=== PATIENT | female | born 1950 | race Caucasian/White ===

== ENCOUNTER 2024-10-17 08:23 | Observation (INO) ==
--- NOTE | 2024-10-15 09:26 | Anesthesiology Consultation ---
Date of Service October 15, 2024 Assessment & Plan (1) Encounter for pre-operative examination: Chart Review Chart Review: Acceptable Risk for Surgery and Patient NOT seen in Pre Admission Testing Patient with significant PONV- usually improved with pre and perioperative anti nausea medication Patient states pain medications usually causes N/V (responds well to Tylenol- per patient surgeon aware) - Check BSG AM DOS Discussed possible C diff infection early Sep 2024 with Infection Control. Patient without C diff symptoms x one month- no additional precautions needed currently but if patient develops diarrhea/change from baseline stool DOS- she should be put under C diff precautions and tested -Infectious Disease screening: Per PAT nursing assessment on 10/10/24. No known infectious disease contacts in past 10 days or current infectious disease symptoms. No recent travel outside the country. Per cardio clearance letter 10/11/24= Patient "is at a lowmoderate risk for perioperative cardiovascular complications for presumed back surgery." I would prefer she does not hold her anticoagulation but if the procedure will not be performed without holding the medication, I would recommend holding Eliquis no longer than 48 hours. She should resume as soon as possible at the discretion of the surgeon pending the course of the procedure. She has held this medication in the past without adverse effects, despite a history of stroke and DVT, she is still at a risk for stroke with holding Eliquis. Per PCP clearance letter 10/09/24 = "Low to moderate risk" for proposed surgery. "Patient is cleared for scheduled surgery." Patient can hold blood thinner x 3 days prior to procedure. Resume next day. History Surgery Operation Date: 10/17/24 12:25 Proposed Procedures p L4-L5 Decompression and Fusion, Spinal Cord Monitoring - Brad Jean Baptiste DO Height/Weight Height: 5 ft Weight: 73.936 kg Allergies Allergy/AdvReac Type Severity Reaction Status Date / Time latex Allergy Intermediate Renner Verified 10/10/24 09:12 codeine AdvReac Intermediate Vomiting Verified 10/10/24 09:12 pseudoephedrine AdvReac Intermediate Tachycardia Verified 10/10/24 09:12 [From Sudafed] tramadol AdvReac Intermediate Vomiting, Verified 10/10/24 09:12 Dizziness Nebulizer Treatments AdvReac Intermediate Tachycardia Uncoded 10/10/24 09:12 Medications Home Medications Medication Instructions Recorded Confirmed Last Taken Full Spectrum Magnesium 1 cap PO HS 10/10/24 10/10/24 Unknown Gastricsoothe 2 cap PO BID 10/10/24 10/10/24 Unknown Probiotic 1 cap PO HS 10/10/24 10/10/24 Unknown Saccharomyces boulardii 1 cap PO QAM 10/10/24 10/10/24 Unknown Vital Gut Renewal 1 tbsp PO DAILY 10/10/24 10/10/24 Unknown albuterol 90 mcg/actuation aerosol 90 mcg inhalation DAILY PRN 10/10/24 10/10/24 Unknown inhaler Shortness of breath and Wheezing apixaban 5 mg tablet (Eliquis) 5 mg PO BID 10/10/24 10/10/24 Unknown ascorbic acid (vitamin C) 1,000 mg 1 g PO DAILY 10/10/24 10/10/24 Unknown tablet (Vitamin C) calcium citrate malate-vitamin D3 2 tab PO QA 10/10/24 10/10/24 Unknown 500 mg-200 unit tablet coenzyme Q10 100 mg tablet 100 mg PO [facility] 10/10/24 10/10/24 Unknown colestipol 1 gram tablet 1 g PO BID 10/10/24 10/10/24 Unknown diphenhydramine HCl 25 mg capsule 12.5 mg PO 10/10/24 10/10/24 Unknown (Unisom SleepMinis) hydrochlorothiazide 12.5 mg capsule 12.5 mg PO [facility] 10/10/24 10/10/24 Unknown insulin glargine 100 unit/mL (3 10 unit subcut 10/10/24 10/10/24 Unknown mL) subcutaneous pen (Lantus Solostar U-100 Insulin) levothyroxine 100 mcg tablet 100 mcg PO DAILYBB 10/10/24 10/10/24 Unknown (Synthroid) melatonin 5 mg tablet 5 mg PO 10/10/24 10/10/24 Unknown metoprolol tartrate 50 mg tablet 50 mg PO BID 10/10/24 10/10/24 Unknown montelukast 10 mg tablet 10 mg PO 10/10/24 10/10/24 Unknown omeprazole 10 mg capsule,delayed 10 mg PO Q2D 10/10/24 10/10/24 Unknown release tiotropium bromide 1.25 2 puff inhalation QA 10/10/24 10/10/24 Unknown mcg/actuation mist for inhalation (Spiriva Respimat) vitamin B complex 1 cap PO QAM 10/10/24 10/10/24 Unknown vitamin D3 250 mcg (10,000 1 cap PO QAM 10/10/24 10/10/24 Unknown unit)-vitamin K2 45 mcg capsule vitamin K2 45 mcg capsule 45 mcg PO QAM 10/10/24 10/10/24 Unknown Past Medical History Medical History (Updated 10/15/24 @ 11:27 by Melyssa Branham PA-C) Asthma PRN albuterol / daily spiriva - [facility] 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 Diabetes mellitus, type 2 IDDM - Dexcom Diverticular disease 2020 - x7 episodes within a year with 3 perforations - s/p bowel resection Enlarged LA (left atrium) [facility] Heart burn History of COVID-2020 and 2021 - has lung scarring on lung images History of TIAs unknown when (2018 and 2019 per cardio records) - incidental finding on MRI of Brain - no residuals - no longer follows with Neurology Hx of Clostridium difficile infection - Multiple - most recently end of Aug 2024/early Sep 2024 - tested C diff negative (patient feels false negative due to specimen being handled improperly by lab) but had symptoms similar to previous C diff infection - treated with augmentin regimen (typically would get vancomycin) - no symtpoms since early Sep 2024 per patient 10/15/24 Hx pulmonary embolism 2020 (PE and DVT per cardio records) - [facility] - no issues since Hypothyroidism Leaky heart valve Mild MR. Mild posterior MVP per 06/2024 ECHO Osteoporosis PONV (postoperative nausea and vomiting) Significant per patient Scarring of lung "from covid, on images" as per patient [facility] Pulmonary Past Surgical History Surgical History History of ankle surgery Right History of bowel resection (05/2021) [facility] History of removal of ovarian cyst Hx of cardiac catheterization [facility] - [facility]o [facility] Cardiology Hx of cholecystectomy Hx of colonoscopy Hx of esophagogastroduodenoscopy Hx of repair of right rotator cuff Hx of thumb surgery Left Social History Smoking Status: Never smoker Do You Dip or Chew Tobacco: No Hx Alcohol Use: Yes Alcohol type: wine alcohol intake frequency: a few times a month Hx Substance Use: No substance use type: does not use Testing Laboratory Results 10/09/24= WBC: 6.1 H/H: 14.4/42.1 PLATELETS: 274 SODIUM: 140 POTASSIUM: 3.7 CHLORIDE: 203 CO2: 29 BUN: 12 CREATININE: 0.84 GLUCOSE: 110 HGB A1C: 6.1 PT: 15.4 PTT: 28.7 INR: 1.2 (on Eliquis) UA: Negative Electrocardiogram Date: 10/06/24 Findings: + SB @ (59bpm) Low voltage QRS Chest X-Ray Date: 10/09/24 Findings: + NAD Unchanged mild bilateral upper lobe scarring Echocardiogram Date: 06/06/24 EF: 55-60% RWMA: + none Other Findings: + LVH (mild/concentric ) and + diastolic dysfunction (Grade II ) LA severely dilated Mild MR. Mild posterior MVP Stress Test Date: 10/05/21 Impression: Myocardial perfusion appears normal following pharmacologic stress with regadenoson. No reversible or fixed ischemia seen. LV systolic function is normal following Lexiscan regadenoson stress. EF is normal. Cardiac Catheterization Date: 11/02/21 (Report not available- information obtained from 06/22/24 cardio note) LM = patent LAD = patent Circumflex = patent RCA = nondominant LVEF 55% Normal right heart numbers
[2024-10-17] MEDS ORDERED: DEXAMETHASONE SOD INJ 4 MG/ML VIAL ONE (08:26)
[2024-10-17] MEDS ORDERED: LIDOCAINE 2% 2 ML VIAL/AMP(20MG/ML) INFIL ONE (08:26)
[2024-10-17] MEDS ORDERED: PROPOFOL IV EMULSION 10 MG/ML 20 ML VIAL IV ONE ×2 (08:26→09:00)
[2024-10-17] MEDS ORDERED: ONDANSETRON INJ 2 MG/ML 2 ML VIAL ONE (08:26)
[2024-10-17] MEDS ORDERED: GLYCOPYRROLATE 0.2 MG/ML VIAL ONE (08:26)
[2024-10-17] MEDS ORDERED: ROCURONIUM BROMIDE 10 MG/ML 5 ML VIAL IV ONE (08:26)
[2024-10-17] MEDS ORDERED: MIDAZOLAM HCL 1 MG/ML 2ML VIAL ONE (08:27)
[2024-10-17] MEDS ORDERED: fentaNYL citrate PF 100 MCG/2 ML VIAL ONE (08:27)
[2024-10-17] MEDS ORDERED: SUGAMMADEX SODIUM 200 MG/2 ML VIAL IV ONE (08:33)
[2024-10-17] MEDS ORDERED: PHENYLEPHRINE 100MCG/ML 5ML SYR ONE (08:59)
[2024-10-17] MEDS: ACETAMINOPHEN 500 MG TAB PO SCH (09:12)
[2024-10-17] MEDS: CeleBREX 200 MG CAP PO SCH (09:12)
[2024-10-17] MEDS: GABAPENTIN 300 MG CAP PO SCH (09:13)
[2024-10-17] MEDS: LR 15ML/HR IV SCH (09:16)
[2024-10-17] MEDS: LR 60ML/HR IV SCH (09:17)
[2024-10-17] MEDS ORDERED: ATROPINE SULFATE 0.1 MG/ML 10ML SYR IV PRN (09:23)
[2024-10-17] MEDS ORDERED: ePHEDrine sulfate 50 MG/ML AMP IV PRN (09:23)
[2024-10-17] MEDS ORDERED: HYDROmorphone INJ 2 MG/ML SYR/VIAL IV PRN (09:23)
[2024-10-17] MEDS ORDERED: ONDANSETRON INJ 2 MG/ML 2 ML VIAL IV PRN (09:23)
[2024-10-17] MEDS ORDERED: PROMETHAZINE HCL 6.25 MG in SODIUM CHLORIDE 0.9% 50 ML IV PRN (09:23)
[2024-10-17] MEDS ORDERED: DROPERIDOL 5 MG/2 ML VIAL ONE (09:53)
[2024-10-17] MEDS ORDERED: diphenhydrAMINE 50 MG/ML VIAL ONE (10:00)
--- NOTE | 2024-10-17 10:10 | History & Physical Bridge Note ---
Date of Service October 17, 2024 History & Physical Bridge Note I have examined the patient, reviewed the History & Physical and in the interval since the performance of the History & Physical I have noted the following changes of clinical significance: no changes noted
--- NOTE | 2024-10-17 10:11 | History & Physical Report ---
Date of Service October 17, 2024 Assessment & Plan (1) Lumbar disc herniation with radiculopathy: Plan: L4-L5 decompression and fusion History of Present Illness Chief Complaint: Back and leg pain Primary Care Provider: Agustina Dalton This is a 73-year-old female presents for chronic persistent back and leg pain after failing course of nonoperative care is here for surgical invention. Allergies Allergy/AdvReac Type Severity Reaction Status Date / Time latex Allergy Intermediate Renner Verified 10/17/24 08:56 codeine AdvReac Intermediate Vomiting Verified 10/17/24 08:56 pseudoephedrine AdvReac Intermediate Tachycardia Verified 10/17/24 08:56 [From Sudafed] tramadol AdvReac Intermediate Vomiting, Verified 10/17/24 08:56 Dizziness Nebulizer Treatments AdvReac Intermediate Tachycardia Uncoded 10/17/24 08:56 Home Medications Medication Instructions Recorded Confirmed Type Full Spectrum Magnesium 1 cap PO HS 10/10/24 10/17/24 History Gastricsoothe 2 cap PO BID 10/10/24 10/17/24 History Probiotic 1 cap PO HS 10/10/24 10/17/24 History Saccharomyces boulardii 1 cap PO QAM 10/10/24 10/17/24 History Vital Gut Renewal 1 tbsp PO DAILY 10/10/24 10/17/24 History albuterol 90 mcg/actuation aerosol 90 mcg inhalation DAILY PRN 10/10/24 10/17/24 History inhaler Shortness of breath and Wheezing apixaban 5 mg tablet (Eliquis) 5 mg PO BID 10/10/24 10/17/24 History ascorbic acid (vitamin C) 1,000 mg 1 g PO DAILY 10/10/24 10/17/24 History tablet (Vitamin C) calcium citrate malate-vitamin D3 2 tab PO QAM 10/10/24 10/17/24 History 500 mg-200 unit tablet coenzyme Q10 100 mg tablet 100 mg PO QAM 10/10/24 10/17/24 History colestipol 1 gram tablet 1 g PO DAILY 10/10/24 10/17/24 History diphenhydramine HCl 25 mg capsule 12.5 mg PO HS 10/10/24 10/17/24 History (Unisom SleepMinis) hydrochlorothiazide 12.5 mg capsule 12.5 mg PO QAM 10/10/24 10/17/24 History insulin glargine 100 unit/mL (3 10 unit subcut HS 10/10/24 10/17/24 History mL) subcutaneous pen (Lantus Solostar U-100 Insulin) levothyroxine 100 mcg tablet 100 mcg PO DAILYBB 10/10/24 10/17/24 History (Synthroid) melatonin 5 mg tablet 5 mg PO HS 10/10/24 10/17/24 History metoprolol tartrate 50 mg tablet 50 mg PO BID 10/10/24 10/17/24 History montelukast 10 mg tablet 10 mg PO HS 10/10/24 10/17/24 History omeprazole 10 mg capsule,delayed 10 mg PO Q2D 10/10/24 10/17/24 History release tiotropium bromide 1.25 2 puff inhalation QAM 10/10/24 10/17/24 History mcg/actuation mist for inhalation (Spiriva Respimat) vitamin B complex 1 cap PO QAM 10/10/24 10/17/24 History vitamin D3 250 mcg (10,000 1 cap PO QAM 10/10/24 10/17/24 History unit)-vitamin K2 45 mcg capsule vitamin K2 45 mcg capsule 45 mcg PO QAM 10/10/24 10/17/24 History Past Med/Surg History Problem List (Updated 10/17/24 @ 10:11 by Brad Jean Baptiste DO) Lumbar disc herniation with radiculopathy Encounter for pre-operative examination Medical History (Updated 10/17/24 @ 10:11 by Brad Jean Baptiste DO) PONV (postoperative nausea and vomiting) Significant per patient Osteoporosis Scarring of lung "from covid, on images" as per patient [facility] History of COVID-19 2020 and 2021 - has lung scarring on lung images Heart burn Diabetes mellitus, type 2 IDDM - Dexcom 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 History of TIAs unknown when (2018 and 2019 per cardio records) - incidental finding on MRI of Brain - no residuals - no longer follows with Neurology Hypothyroidism Hx pulmonary embolism 2020 (PE and DVT per cardio records) - [facility] [place] - no issues since Asthma PRN albuterol / daily spiriva - [facility] Hx of Clostridium difficile infection - Multiple - most recently end of Aug 2024/early Sep 2024 - tested C diff negative (patient feels false negative due to specimen being handled improperly by lab) but had symptoms similar to previous C diff infection - treated with augmentin regimen (typically would get vancomycin) - no symtpoms since early Sep 2024 per patient 10/15/24 Diverticular disease 2020 - x7 episodes within a year with 3 perforations - s/p bowel resection Leaky heart valve Mild MR. Mild posterior MVP per 06/2024 ECHO Enlarged LA (left atrium) [facility] Atrial fibrillation Eliquis - [facility] Surgical History History of removal of ovarian cyst Hx of thumb surgery Left History of ankle surgery Right Hx of repair of right rotator cuff Hx of cholecystectomy Hx of esophagogastroduodenoscopy Hx of cardiac catheterization [facility] Hx of [facility]oscopy History of bowel resection (05/2021) [facility] Social History Smoking Status: Never smoker Second Hand Exposure: No; Do You Dip or Chew Tobacco: No; Tobacco Cessation Education Requested by Patient: No Hx Alcohol Use: Yes Alcohol type: wine Hx Substance Use: No Preferred Language: Irish Communication Ability: Effective 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
[2024-10-17] MEDS: ceFAZolin 2000MG 2,000 MG/15 ML SYR IV SCH ×2 (10:31→18:20)
[2024-10-17] MEDS: ceFAZolin 330 MG/ML 1 GM VIAL ONE (10:53)
[2024-10-17] MEDS: BUPIVACAINE/EPINEPHRINE 0.25% 1:200,000 30 ML VIAL ONE (10:53)
[2024-10-17] MEDS: FLOSEAL HEMOSTATIC MATRIX 10ML TOP ONE (11:43)
[2024-10-17] MEDS ORDERED: HYDROmorphone INJ 2 MG/ML SYR/VIAL ONE (11:48)
--- NOTE | 2024-10-17 11:51 | Operative Report ---
Post Operative Report Pre & Post Diagnosis Operation Date: 10/17/24 10:05 Pre-Op Diagnosis: #1 lumbar spondylolisthesis with radiculopathy. #2 lumbar spondylosis with radiculopathy. #3 lumbar spinal stenosis. #4 lumbar disc herniation with radiculopathy Post-Op Diagnosis: Same I identified the patient and participated in the time-out.: Yes Procedure Operation Date: 10/17/24 10:05 Actual Procedures #1 lumbar decompression bilateral medial facetectomies and foraminotomies L3-L4 L4-5. #2 posterior spinal fusion L4-5 #3 placement posterior instrumentation L4-5 per #4 interbody fusion L4-5 per #5 placement of Spira 11 x 26 mm cage x 2 at L4-5 #6 placement locally harvested morselized autograft and posterior gutters. #7 placement infuse collagen sponge, with Koros in the posterior lateral gutters and os design interbody space. #8 application of versa wrap of the exposed dura. 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 Description of Procedure Patient was met with identified informed consent obtained. Patient was then taken to the operative suite underwent intubation placed in a prone position the Damon table atop the Gera frame. All bony prominences well-padded eyes inspected to ensure no external pressure placed upon them. This point lumbar spine was prepped and draped no sterile fashion. Sharp dissection with the assistance of Bovie cautery performed down to and exposing the lamina transverse processes of L4 and L5 bilaterally. From a caudal to cephalad fashion complete laminectomy of L4 was performed including bilateral medial facetectomies and foraminotomies addressing severe spinal stenosis as well as a disc herniation on the left. And then proceeded move a partial laminectomy of L3 with bilateral medial facetectomies addressing all subarticular stenosis. Pedicle screws were then placed in L4-5 bilaterally with the assistance of fluoroscopy and the properly sized sabrina placed. By way of transforaminal approach at right discectomy of of L4-5 was performed endplates guarded to subcortical mean bone 11 x 26 mm Spira cage filled with os design tapped in position. Then proceeded to the left transforaminal region at L4-5. Again discectomy performed. Endplates guarded to subcortical bleeding bone and a second 11 x 26 mm Spira cage filled with os send bone graft apposition. The rods were then locked in a final position bilaterally. The transverse processes of L for L5 burred to subcortical bleeding bone. Infuse collagen sponge, with Koros and local graft placed in the posterior lateral gutters. Versa wrap placed over the exposed dura. 15 round ASHLEY drain inserted. The incision was then closed with 1 Vicryl the fascia 2-0 Vicryl subcutaneously for Monocryl for final skin closure. Steri-Strips sterile dressing placed. Patient waken taken to PACU in stable condition. Please note spinal cord monitoring visualized at the procedure no changes noted. Joanie Hernandez was present at the entire surgery while the patient positioning complex portion of the surgery and final skin closure. I attest to the content of the Intraoperative Record and any orders documented therein. Any exceptions are noted below.
[2024-10-17] MEDS: fentaNYL citrate PF 100 MCG/2 ML VIAL IV PRN (12:40)
--- NOTE | 2024-10-17 13:18 | Anesthesiology Progress Note ---
Date of Service October 17, 2024 Anesthesia Post Procedure Vital Signs Vital Signs: Temp Pulse Pulse Resp BP Pulse Ox O2 Del Method 10/17/24 13:10 97.7 F 62 13 132/66 96 Nasal Cannula 10/17/24 13:00 66 12 128/67 95 Nasal Cannula 10/17/24 12:50 72 13 143/66 H 96 Nasal Cannula 10/17/24 12:40 66 17 134/67 92 Oxymask 10/17/24 12:30 65 18 135/71 95 Oxymask 10/17/24 12:20 65 17 130/68 98 Oxymask 10/17/24 12:10 68 17 117/62 96 Oxymask 10/17/24 12:01 98.2 F 69 15 143/74 H 98 Oxymask 10/17/24 08:55 97.9 F 63 97 H 147/81 H 97 Room Air O2 Flow Rate 10/17/24 13:10 2 10/17/24 13:00 3 10/17/24 12:50 3 10/17/24 12:40 2 10/17/24 12:30 4 10/17/24 12:20 8 10/17/24 12:10 8 10/17/24 12:01 8 10/17/24 08:55 Pain Intensity Back: Pain Intensity: 5 Transfer of Care Handoff Completed per policy Notes Mental Status: alert / awake / arousable and participated in evaluation Patient Amnestic to Procedure: Yes Nausea / Vomiting: adequately controlled Pain: adequately controlled Airway Patency, RR, SpO2: stable & adequate BP & HR: stable & adequate Hydration State: stable & adequate Anesthetic Complications: no major complications apparent and Pt Satisfied with anesthetic care
--- NOTE | 2024-10-17 13:25 | Fluoroscopy Report ---
FL lumbar spine 2-3V CLINICAL HISTORY: L4-5 DECOMP AND FUSION COMPARISON STUDY: None. FLUOROSCOPY TIME: 18 seconds. Ka,r: 16.39 mGy FLUOROSCOPIC IMAGES: 2 FINDINGS: Fluoroscopy was provided during L4-L5 discectomies with interbody spacer placement. There i s a posterior decompression with bilateral pedicle screws at the L4 and L5 levels. IMPRESSION: Fluoroscopy provided during L4-L5 decompression and fusion. ACT 112: Negative or not required by law. Electronically signed by: Jimmie Jacobson M.D. 10/17/2024 1:24 PM
[2024-10-17] MEDS ORDERED: ACETAMINOPHEN 1,000 MG/100 ML VIAL IV PRN (13:38)
[2024-10-17] MEDS ORDERED: diphenhydrAMINE Capsule 25 MG CAP PO PRN (13:38)
[2024-10-17] MEDS ORDERED: HYDROmorphone INJ 0.5 MG/0.5 ML SYR IV PRN (13:38)
[2024-10-17] MEDS ORDERED: FAMOTIDINE 20 MG TAB PO PRN (13:38)
[2024-10-17] MEDS ORDERED: LORazepam 0.5 MG TAB PO PRN (13:38)
[2024-10-17] MEDS ORDERED: bisacodyL 10 MG SUPP PR PRN (13:38)
[2024-10-17] MEDS ORDERED: ALUMINUM/MAGNESIUM SUSP 30 ML UDC PO PRN (13:38)
[2024-10-17] MEDS ORDERED: DO NOT ADMINISTER FLU VACCINE PRN (13:38)
[2024-10-17] MEDS ORDERED: hydrOXYzine HCl 25 MG TAB PO PRN (13:38)
[2024-10-17] MEDS ORDERED: LORazepam 2 MG/1 ML VIAL IV PRN (13:38)
[2024-10-17] MEDS ORDERED: DO NOT ADMINISTER PNEUMOCOCCAL VACCINE PRN (13:38)
[2024-10-17] MEDS ORDERED: HYDROmorphone INJ 1 MG/ML SYRINGE IV PRN (13:38)
[2024-10-17] MEDS ORDERED: METOCLOPRAMIDE HCL INJ 5 MG/ML 2 ML VIAL IV PRN (13:38)
[2024-10-17] MEDS ORDERED: PROMETHAZINE 12.5 MG/50.5 ML BAG IV PRN (13:38)
[2024-10-17] MEDS ORDERED: NALOXONE HCL 0.4 MG/1 ML VIAL/CARP IV PRN (13:38)
[2024-10-17] MEDS ORDERED: MAGNESIUM HYDROXIDE SUSP 30 ML UDC PO PRN (13:38)
[2024-10-17] MEDS ORDERED: SOD PHOSPHATE/SOD BIPHOSPHATE ENEMA 132 ML BTL PR PRN (13:38)
[2024-10-17] MEDS ORDERED: PHARMACY GLYCEMIC MGMT CONSULT PRN (13:38)
[2024-10-17] MEDS ORDERED: GLUCOSE 10 TAB/TUBE PO PRN (14:00)
[2024-10-17] MEDS ORDERED: DEXTROSE 50% 50 ML SYRINGE IV PRN (14:00)
[2024-10-17] MEDS ORDERED: GLUCOSE 40% GEL 15 GM TUBE PO PRN (14:00)
[2024-10-17] MEDS ORDERED: CARBOHYDRATES FOR HYPOGLYCEMIA PO PRN (14:00)
[2024-10-17] MEDS ORDERED: GLUCAGON FOR INJ 1 MG VIAL SQ PRN (14:00)
--- NOTE | 2024-10-17 14:10 | Pharmacy Report ---
Pharmacy Glycemic Short Note 2 - Date of Service October 17, 2024 - Glycemic Short BSG Results (Last 24 hours): 10/17/24 10/17/24 08:54 12:04 POC Glucose 131 H 124 H OUTPATIENT ANTIDIABETIC REGIMEN: * Lantus 10 units SC HS ASSESSMENT: * GAVIN is a 73 year old female POD #0 s/p spinal surgery * Received 8 mg IV dexamethasone in OR and is ordered dexamethasone 6 mg IV daily x 3 days starting 10/18 * Blood sugars of 131 and 124 mg/dL pre/postoperative respectively * Will be somewhat conservative with insulin regimen today PLAN FOR INPATIENT GLYCEMIC CONTROL: * Hold outpatient oral diabetes medications * Basal insulin * Lantus 10 units SC x 1 * Reassess in AM * Bolus insulin * NovoLog per scale ACHS or Q6hrs while NPO * Goal Range: Low 110 mg/dL - High 140 mg/dL * Correction Factor: 25 mg/dL/unit * Nutritional / Prandial insulin per carb ratio of 1 unit per 7 grams CHO consumed
[2024-10-17] MEDS ORDERED: ALBUTEROL HFA 8 GM INHALER INH PRN (14:30)
[2024-10-17] MEDS: INSULIN ASPART PER UNIT CHARGE SC SCH (14:51)
[2024-10-17] MEDS: LANTUS PER UNIT CHARGE SC ONE (14:51)
--- NOTE | 2024-10-17 14:55 | Consultation ---
Date of Consultation October 17, 2024 Assessment & Plan (1) Lumbar disc herniation with radiculopathy: (2) Diabetes mellitus, type 2: (3) Hx pulmonary embolism: (4) Atrial fibrillation: (5) Diverticular disease: (6) Hx of Clostridium difficile infection: (7) Cerebral microvascular disease: Plan Lumbar disc herniation with radiculopathy: POD# 0 s/p L4-L5 decompression effusion care of Dr. Jean Baptiste. Per ortho for pain control, wound care, anticoagulation and activities. Monitor H&H, no baseline to compare. trend H/H in the AM; no overt bleeding identified around ASHLEY ASHLEY drain with juan david red blood Continue incentive spirometry, PT/OT when appropriate History of DVT/PE: Takes Eliquis; recommended to hold no more than POD#2 (48 hours) given her history. Atrial fibrillation: Takes Metoprolol; continue Takes Eliquis; recommended to hold no more than POD#2 (48 hours) given her history. H/O Diverticular Disease: History of three perforations s/p resections H/O CD H/O TIA: 2018 and 2019 without residual effect Insulin dependent diabetes type 2: Chronic Uses Lantus 10 units QHS Disposition: PCP: Dr. Dalton Code Status: Full Code VTE Prophylaxis: Teds and SCDs for now I spent a total of 60 minutes coordinating, documenting, and providing care for this patient excluding time spent inthe performance of separately billed services or time spent by another provider/QHP. Supervising Physician Co-Signing Physician Notes Patient was seen and examined at bedside for medical consult status post lumbar surgery. Patient hemodynamically stable, reports operative site pain under control. Patient on Eliquis due to history of DVT/PE and A-fib. And also has history of TIA. Resume Eliquis as soon as possible when bleeding risks deemed minimal per spine surgery. Agree with assessment plan and examination as above. Total time spent: 12 minutes. History of Present Illness Requesting Physician: Dr. Jean Baptiste Reason for Consultation: Postoperative medical management Attending Physician: Brad Jean Baptiste DO History of Present Illness Ms. Zurita is a 73 year old female presented to the [facility] for an elective decompression and fusion surgery under the care of Dr. Jean Baptiste after failed conservative management of disc herniation with radiculopathy. PMH history is complex with diverticular disease with perforation s/p resection, H/O TIA () without residual effect, AF (on Eliquis), H/O DVT/PE (2020- provoked by [place] care ride [place] hypothyroidism, IDDM2, and GERD. Post-operatively she is recovering well. She has a history of PONV and does not have any s/s this time. She denies BURTON, dizziness, chest pain, vomiting, diarrhea, recent falls. She has a ASHLEY drain and no caceres catheter. Discussed that ortho to determine restarting Eliquis; recommendation per outpatient is to not hold more than 48 hours. [facility] Hospitalists were consulted for post operative medical management. We are available 28/03 for any questions or concerns. Allergies Allergy/AdvReac Type Severity Reaction Status Date / Time latex Allergy Intermediate Renner Verified 10/17/24 08:56 codeine AdvReac Intermediate Vomiting Verified 10/17/24 08:56 pseudoephedrine AdvReac Intermediate Tachycardia Verified 10/17/24 08:56 [From Sudafed] tramadol AdvReac Intermediate Vomiting, Verified 10/17/24 08:56 Dizziness Nebulizer Treatments AdvReac Intermediate Tachycardia Uncoded 10/17/24 08:56 Home Medications Medication Instructions Recorded Confirmed Type Full Spectrum Magnesium 1 cap PO HS 10/10/24 10/17/24 History Gastricsoothe 2 cap PO BID 10/10/24 10/17/24 History Probiotic 1 cap PO HS 10/10/24 10/17/24 History Saccharomyces boulardii 1 cap PO QAM 10/10/24 10/17/24 History Vital Gut Renewal 1 tbsp PO DAILY 10/10/24 10/17/24 History albuterol 90 mcg/actuation aerosol 90 mcg inhalation DAILY PRN 10/10/24 10/17/24 History inhaler Shortness of breath and Wheezing apixaban 5 mg tablet (Eliquis) 5 mg PO BID 10/10/24 10/17/24 History ascorbic acid (vitamin C) 1,000 mg 1 g PO DAILY 10/10/24 10/17/24 History tablet (Vitamin C) calcium citrate malate-vitamin D3 2 tab PO QAM 10/10/24 10/17/24 History 500 mg-200 unit tablet coenzyme Q10 100 mg tablet 100 mg PO QAM 10/10/24 10/17/24 History colestipol 1 gram tablet 1 g PO DAILY 10/10/24 10/17/24 History diphenhydramine HCl 25 mg capsule 12.5 mg PO HS 10/10/24 10/17/24 History (Unisom SleepMinis) hydrochlorothiazide 12.5 mg capsule 12.5 mg PO QAM 10/10/24 10/17/24 History insulin glargine 100 unit/mL (3 10 unit subcut HS 10/10/24 10/17/24 History mL) subcutaneous pen (Lantus Solostar U-100 Insulin) levothyroxine 100 mcg tablet 100 mcg PO DAILYBB 10/10/24 10/17/24 History (Synthroid) melatonin 5 mg tablet 5 mg PO HS 10/10/24 10/17/24 History metoprolol tartrate 50 mg tablet 50 mg PO BID 10/10/24 10/17/24 History montelukast 10 mg tablet 10 mg PO HS 10/10/24 10/17/24 History omeprazole 10 mg capsule,delayed 10 mg PO Q2D 10/10/24 10/17/24 History release tiotropium bromide 1.25 2 puff inhalation QAM 10/10/24 10/17/24 History mcg/actuation mist for inhalation (Spiriva Respimat) vitamin B complex 1 cap PO QAM 10/10/24 10/17/24 History vitamin D3 250 mcg (10,000 1 cap PO QAM 10/10/24 10/17/24 History unit)-vitamin K2 45 mcg capsule vitamin K2 45 mcg capsule 45 mcg PO QAM 10/10/24 10/17/24 History Patient History Medical History PONV (postoperative nausea and vomiting) Significant per patient Osteoporosis Scarring of lung "from covid, on images" as per patient [facility] History of COVID-19 2020 and 2021 - has lung scarring on lung images Heart burn Diabetes mellitus, type 2 IDDM - Dexcom 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 History of TIAs unknown when (2018 and 2019 per cardio records) - incidental finding on MRI of Brain - no residuals - no longer follows with Neurology Hypothyroidism Hx pulmonary embolism 2020 (PE and DVT per cardio records[facility] since Asthma PRN albuterol / daily spiriva - [facility] Hx of Clostridium difficile infection - Multiple - most recently end of Aug 2024/early Sep 2024 - tested C diff negative (patient feels false negative due to specimen being handled improperly by lab) but had symptoms similar to previous C diff infection - treated with augmentin regimen (typically would get vancomycin) - no symtpoms since early Sep 2024 per patient 10/15/24 Diverticular disease 2020 - x7 episodes within a year with 3 perforations - s/p bowel resection Leaky heart valve Mild MR. Mild posterior MVP per 06/2024 ECHO Enlarged LA (left atrium) Niko Ulloa [facility] Surgical History History of removal of ovarian cyst Hx of thumb surgery Left History of ankle surgery Right Hx of repair of right rotator cuff Hx of cholecystectomy Hx of esophagogastroduodenoscopy Hx of cardiac catheterization [facility] Hx of colonoscopy History of bowel resection (05/2021) [facility] Social History Smoking Status: Never smoker Second Hand Exposure: No; Do You Dip or Chew Tobacco: No; Tobacco Cessation Education Requested by Patient: No Hx Alcohol Use: Yes Alcohol type: wine Hx Substance Use: No Preferred Language: Tajik Communication Ability: Effective 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 Beliefs That Will Affect Care: None Current Living Situation: Spouse Other Information That Helps Us Care for You: No Feels Safe at Home: Yes Safety Concerns: Feels Safe At This Time Assistive Devices: Denture - Upper, Glasses, Walker and Other Assistive Devices Comment: Lower partial Review of Systems Review of Systems: Neuro: (-) Falls, trauma, slurred speech HEENT: (-) BURTON, dizziness, dysphagia, visual or auditory changes CV: (-) CP, palpitations, swelling Resp: (-) SOB GI: (-) appetite changes, N/V/D, bowel changes : (-) urinary changes Skin: (-) rashes Psych: (-) anxiety, depression Physical Exam Physical Exam: Neuro: AAOx4, PERRLA, no aphagia, memory changes, CNII-XII grossly intact HEENT: head normocephalic, moist mucus membranes CV: S1/S2, (-) M/G/R, (-) edema, cap refill < 3 seconds Resp: Lungs CTA in all thao. On RA GI: Abdomen S/NT/ND, Ax4 bowel sounds, (-) CVA tenderness Musculoskeletal: 5/5 B/L UE strength, 5/5 B/L LE strength. No gait disturbance Skin: (-) rashes , (-) erythema. Psych: euthymic mood Results & Data Vital Signs (Past 12 Hours) Vital Signs Temp Pulse Pulse Resp BP Pulse Ox O2 Del Method 10/17/24 14:29 36.6 C 65 17 109/66 96 Nasal Cannula 10/17/24 14:22 Nasal Cannula 10/17/24 13:55 36.4 C L 64 17 118/73 97 Nasal Cannula 10/17/24 13:30 36.4 C L 61 17 118/56 L 97 Nasal Cannula 10/17/24 13:20 61 13 123/59 L 96 Nasal Cannula 10/17/24 13:10 36.5 C 62 13 132/66 96 Nasal Cannula 10/17/24 13:00 66 12 128/67 95 Nasal Cannula 10/17/24 12:50 72 13 143/66 H 96 Nasal Cannula 10/17/24 12:40 66 17 134/67 92 Oxymask 10/17/24 12:30 65 18 135/71 95 Oxymask 10/17/24 12:20 65 17 130/68 98 Oxymask 10/17/24 12:10 68 17 117/62 96 Oxymask 10/17/24 12:01 36.8 C 69 15 143/74 H 98 Oxymask 10/17/24 08:55 36.6 C 63 97 H 147/81 H 97 Room Air O2 Flow Rate 10/17/24 14:29 2 10/17/24 14:22 2 10/17/24 13:55 2 10/17/24 13:30 2 10/17/24 13:20 2 10/17/24 13:10 2 10/17/24 13:00 3 10/17/24 12:50 3 10/17/24 12:40 2 10/17/24 12:30 4 02/12/25 12:20 8 10/17/24 12:10 8 10/17/24 12:01 8 10/17/24 08:55 Diagnostic Findings Lumbar Spine X-Ray 10/17/24 00:00 FL lumbar spine 2-3V CLINICAL HISTORY: L4-5 DECOMP AND FUSION COMPARISON STUDY: None. FLUOROSCOPY TIME: 18 seconds. Ka,r: 16.39 mGy FLUOROSCOPIC IMAGES: 2 FINDINGS: Fluoroscopy was provided during L4-L5 discectomies with interbody spacer placement. There is a posterior decompression with bilateral pedicle screws at the L4 and L5 levels. IMPRESSION: Fluoroscopy provided during L4-L5 decompression and fusion. ACT 112: Negative or not required by law. Electronically signed by: Jimmie Jacobson M.D. 10/17/2024 1:24 PM
[2024-10-17] MEDS: ONDANSETRON INJ 2 MG/ML 2 ML VIAL IV PRN (14:57)
[2024-10-17] MEDS: HYDROCODONE/ACETAMOPHEN 5/325MG TAB PO PRN (15:08)
[2024-10-17] MEDS: ACETAMINOPHEN 500 MG TAB PO PRN (17:18)
[2024-10-17] MEDS ORDERED: PROBIOTIC PO SCH (21:00)
[2024-10-17] MEDS ORDERED: [UNRECOGNIZED DRUG - OTHER] PO SCH (21:00)
[2024-10-17] MEDS ORDERED: [UNRECOGNIZED DRUG - OTHER] PO SCH (21:00)
[2024-10-17] MEDS: MELATONIN 3 MG TAB PO SCH (21:09)
[2024-10-17] MEDS: METOPROLOL TARTRATE 50 MG TAB PO SCH (21:09)
[2024-10-17] MEDS: DOCUSATE SODIUM/SENNA 50/8.6MG TAB PO SCH (21:09)
[2024-10-17] MEDS: MONTELUKAST SODIUM 10 MG TABLET PO SCH (21:10)
[2024-10-17] MEDS: diphenhydrAMINE Capsule 25 MG CAP PO SCH (21:11)
--- OUTSIDE RECORDS SUMMARY | 2024-10-17 21:33 | External Medical Summary ---
Author Name Unknown Address Unknown Organization [id number]:[facility] - [address] [place] [id number] Laboratory Report Ordering Provider Test Date Status JUANJOSE OSBORNE 08/18/2024 02:26:52 Final Observation Date Value Abnormality Reference (Units ) Status Lactic Acid, Whole Blood 08/18/2024 02:26:52 1.3 0.4-2.0 (mmol/L) Final Performing Location [facility] - [address] [facility] [id number]
--- OUTSIDE RECORDS SUMMARY | 2024-10-17 21:33 | External Medical Summary | Summary of Care ---
Author Name Unknown Organization [facility] [address] [place] [address] Phone [phone] Care Team Providers Care Control Panel Tester Name Role Phone Agustina Dalton MD Primary Care Provid er Reason for Visit * Reason Comments Abdominal Pain * Auth/Cert Specialty Diagnoses / Procedures Referred By Contskinny t Referred To Contact [address] [address] Phone: [phone] [facility] Emergency Department ([facility]) [address] [place] [id number] Phone: tel: fax: Referral ID Status Reason Start Date Expiration Date Visits Re quested Visits Authorized [id number] Encounter Details Date Type Department Care Team (Late st Contact Info) Description 08/18/2024 2:13 AM EST - 08/18/2024 6:30 AM EST Emergency [facility] Emergency Department ([facility]) [address] [place] [id number] Ben Nix MD [address] [place] [address] [place] [id number] Generalized abdominal pain (Primary Dx); Abdominal pain Discharge Disposition: Home - Self Care Allergies Active Allergy Reactions Criticality Noted Date Comments Codeine Nausea/vomiting 06/28/2020 Diclofenac Sodium Medium 04/08/2016 Other reaction(s): blisters Doxycycline Medium 09/16/2012 Other reaction(s): emesis Latex 03/22/2019 Pseudoephedrine Hcl 12/21/2018 Other reaction(s): Irregular Heart Rate Pseudoephedrine Other (Please comment) 06/28/2020 Heart racing for over 24 hours. Tramadol 05/25/2021 Other reaction(s): Vomiting Triprolidine 08/18/2008 Other reaction(s): "jittery, palpitations" Wound Dressing Adhesive 05/12/2021 documented as of this encounter (statuses as of 08/18/2024) Medications valACYclovir HCl 1 GM Oral Tablet (VALTREX) Take 1 Tablet by mouth as needed for Other (cold sore). 9 Active Glucose Blood In Vitro Strip Use to test blood sugar once daily 9 Active FreeStyle Lancets Use to text blood sugar once daily Dx: E11.8 9 Active Cholecalciferol 50 MCG (2000 UT) Oral Capsule Take 1 Capsule by mouth in the morning. Active Krill Oil 1000 MG Oral Capsule Take 1 Capsule by mouth in the morning. Active Apixaban 5 MG Oral Tablet Take 1 Tablet by mouth in the morning and 1 Tablet before bedtime. Active Metoprolol Tartrate 25 MG Oral Tablet (Lopressor) Take 1 Tablet by mouth in the morning and 1 Tablet before bedtime. 1 Active B Complex Vitamins Oral Capsule Take 1 Capsule by mouth in the morning. Active Magnesium 300 MG Oral Capsule Take 1 Capsule by mouth at bedtime. Active Levothyroxine Sodium 50 MCG Oral Tablet (Synthroid) Take 1 Tablet by mouth daily first thing in the morning. (at least 30 min prior to breakfast or other meds) Active Probiotic (Lactobacillus) Oral Capsule Take 1 Capsule by mouth in the morning and 1 Capsule before bedtime. Active Vitamin C 500 MG Oral Capsule Take 1 Capsule by mouth in the morning. Active Albuterol Sulfate HFA 108 (90 Base) MCG/ACT Inhalation Aerosol Solution Inhale 2 Puffs by mouth every 6 hours as needed for Wheezing. 18 g 1 4 Active Colestipol HCl 1 GM Oral Tablet (Colestid) Take 1 Tablet by mouth in the morning. 3 Active Montelukast Sodium 10 MG Oral Tablet (Singulair) Take 1 Tablet by mouth every evening. 04/09/202 4 Active Insulin Glargine 100 Unit/ml SC SOLN injection Inject 10 Units under the skin at bedtime. Active Ciprofloxacin HCl 500 MG Oral Tablet (Cipro) Take 1 Tablet by mouth in the morning and 1 Tablet before bedtime. Do all this for 10 days. 20 Tablet 4 08/28/20 Active metroNIDAZOLE 500 MG Oral Tablet (Flagyl) Take 1 Tablet by mouth in the morning and 1 Tablet at noon and 1 Tablet before bedtime. Do all this for 10 days. 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 current use of anticoagulant therapy 0 10/02/2023 Optic neuritis, retrobulbar (acute), left 2022 Pseudophakia of both eyes 08/11/2023 S/P cholecystectomy 08/31/2022 Vitamin D deficiency 03/11/2022 Age-related osteoporosis wit hout current pathological fracture 08/04/2021 S/P partial colectomy 07/28/2021 Overview (10/01/2023): For diverticulitis Decreased diffusion capacity of lung 05/05/2021 Multiple subsegmental pulmon valentino emboli without acute cor pulmonale 01/07/2021 Asthma 12/25/2020 Gastroesophageal reflux disease 12/25/2020 Paroxysmal atrial fibrillation 12/23/2020 Overview (12/25/2020): CHADsVASc: 7 Last Assessment & Plan: Pt is very hesitant to start anticoagulation. She inquired about the timing of testing as she just go over two bouts of diverticulitis and an URI. We discussed there is a potential this is related to her acute illness, but even though it is likely to recur while healthy. After discussing the risk/benefit, she would like to hold off on any changes and reassess. Will wait 30 days for her to completely 'heal', then obtain a 30 day neurology professor with follow up after. At that time we will readdress treatment options, including anticoagulation. I did discuss the potential of stroke/hospitalization/heart failure with her if she remains untreated or if she goes into atrial fibrillation with RVR. She verbalized understanding. She will call with any concerns prior to her scheduled follow up. 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 Essential hypertension 03/27/2019 Hypothyroidism (acquired) 03/27/2019 Mixed hyperlipidemia 03/27/2019 Multinodular goiter (nontoxic) 03/27/2019 Osteopenia after menopause 03/27/2019 Other adult osteomalacia 03/27/2019 Type 2 diabetes mellitus wit h complication, without long-term current use of insulin 03/27/2019 Overview (10/02/2023): Suspect early, partial DKA induced by steroids documented as of this encounter (statuses as of 08/18/2024) Resolved Problems Problem Noted Date Diagnosed Date Resolved Date Adverse effect of beta-adrenoceptor agonist 10/02/2023 10/02/2023 Overview (10/02/2023): Lactic acidosis Acute lactic acidosis 10/02/20232023 Colitis, acute 06/24/2021 10/02/2023 Venous thromboembolism (VTE) 04/20/2021 10/02/2023 HSV-1 (herpes simplex virus 1) infection 04/20/2021 10/02/2023 Diverticulitis of sigmoid colon 04/19/2021 10/02/2023 Transient ischemic attack 12/25/2020 CVA (cerebral vascular accident) 01/18/2020 10/02/2023 Overview (12/25/2020): Silent occipital found incidentally on MRI. Pt on plavix as she failed asa. Headache around the eyes 12/10/2019 Encounter for examination fo r normal comparison and control in clinical research program 10/24/2017 04/07/2020 Overview (12/22/2020): DO NOT DELETE [facility] DETECT Study: Project # [id number], Coal Sample Tester: Nir Arroyo, PhD. SUMMARY: Goal: Establish test characteristics (sensitivity, specificity, PPV, NPV) of a circulating tumor DNA (ctDNA)-based test for cancer. Hypothesis: Circulating tumor DNA (ctDNA) and elevated protein biomarkers (together, the marker panel) can be detected in asymptomatic individuals with early cancer. Specific Aim 1: Determine the prevalence of a positive marker panel test in a prospective clinical cohort of 10,000 asymptomatic women ages 65 to 75 years. Specific Aim 2: Determine the sensitivity, specificity, positive predictive value (PPV) and negative predictive value (NPV) of a marker panel test to identify histologically proven cancers that develop within 5-years of the marker panel evaluation. CONTACTS: During normal business hours, contact study staff at ; after hours Coal Sample Tester via the [facility] hospital flange machine operator . Please contact study team before resolving/deleting from patients problem list. Study phone number: [phone]. Diagnosis changed due to Research Module. Go to [employer] for study details. Encounter for examination fo r normal comparison and control in clinical research program 10/24/2017 05/06/2022 Overview (12/22/2020): DO NOT DELETE - [facility] Study: Project # [id number], Coal Sample Tester: Mariusz Vallejo, MS, MPH. SUMMARY: Goal: Establish test characteristics (sensitivity, specificity, PPV, NPV) of a circulating tumor DNA (ctDNA)-based test for cancer. - Hypothesis: Circulating tumor DNA (ctDNA) and elevated protein biomarkers (together, the marker panel) can be detected in asymptomatic individuals with early cancer. - Specific Aim 1: Determine the prevalence of a positive marker panel test in a prospective clinical cohort of 10,000 asymptomatic women ages 65 to 75 years. - Specific Aim 2: Determine the sensitivity, specificity, positive predictive value (PPV) and negative predictive value (NPV) of a marker panel test to identify histologically proven cancers that develop within 5-years of the marker panel evaluation. - CONTACTS: During normal business hours, contact study staff at ; after hours Coal Sample Tester via the [facility] flange machine operator . - Please contact study team before resolving/deleting from patients problem list. Study phone number: [phone]. Diagnosis changed due to Research Module. Go to [employer] for study details. documented as of this encounter (statuses as of 08/18/2024) Social History Tobacco Use Types Packs/Day Years Used Date Smoking Tobacco: Never Smokeless Tobacco: Never Alcohol Use Standard Drinks/Week Comments Yes 0 (1 standard drink = 0.6 oz pur e alcohol) very occasionally Comments No Sex and Gender Information Value Date Recorded Sex Assigned at Not on file Legal Sex Female 11:06 AM EDT Gender Identity Not on file Sexual Orientation Not on file documented as of this encounter Last Filed Vital Signs Vital Sign Reading Time Taken Comments Blood Pressure 148/78 08/18/2024 5:00 AM EST Pulse 65 08/18/2024 5:00 AM EST Temperature 37.5 C (99.5 F) 08/18/2024 2:14 AM ES T Respiratory Rate 16 08/18/2024 4:00 AM EST Oxygen Saturation 94% 08/18/2024 5:00 AM EST Inhaled Oxygen Concentration - - Weight 75.1 kg (165 lb 9.1 oz) 08/18/2024 2:14 A M EST Height 152.4 cm (5') 08/18/2024 2:14 AM EST Body Mass Index 32.33 08/18/2024 2:14 AM EST documented in this encounter Functional Status * Are you deaf or do you have serious difficulty hearing? Answer Date of Assessment Author No 10/02/2023 2:40 AM EST Fredis Justice RN * Are you blind or do you have serious difficulty seeing, even when wearing glasses? Answer Date of Assessment Author No 10/02/2023 2:40 AM EST Fredis Justice RN * Do you have serious difficulty walking or climbing stairs? (5 years old or older) Answer Date of Assessment Author No 10/02/2023 2:40 AM EST Fredis Justice RN * Do you have difficulty dressing or bathing? (5 years old or older) Answer Date of Assessment Author No 10/02/2023 2:40 AM EST Fredis Justice RN * Because of a physical, mental, or emotional condition, do you have difficulty doing errands alone such as visiting a doctors office or shopping? (15 years old or older) Answer Date of Assessment Author No 10/02/2023 2:40 AM Fredis Salazar RN documented as of this encounter Mental Status * Because of a physical, mental, or emotional condition, do you have serious difficulty concentrating, remembering, or making decisions? (5 years old or older) Answer Entry Date Author No 10/02/2023 2:40 AM Fredis Salazar RN documented in this encounter ED Notes * Ben Nix MD - 08/18/2024 2:37 AM EST HISTORY OF PRESENT ILLNESS Jeannette Zurita is a 73 year old female who presents to the ED for evaluation of Abdominal Pain. The patient was seen at 08/18/24 0230. 73-year-old female presents with diffuse lower abdominal pain ongoing for the past approximate 24 hours. She does have a history of diverticulitis and this feels similar. She was concerned given she was waited in the past and ended up with diverticulitis with perforation requiring bowel resection no fevers or chills. No chest pain or shortness of breath. No other complaints. History provided by: patient and spouse Abdominal Pain Pain location: Generalized Pain quality: aching and bloating Pain radiates to: Does not radiate Pain severity: Mild Onset quality: Gradual Timing: Constant Chronicity: Recurrent Associated symptoms: nausea Associated symptoms: no dysuria, no fever and no vomiting Review of Systems Constitutional: Negative for fever. Gastrointestinal: Positive for abdominal pain and nausea. Negative for vomiting. Genitourinary: Negative for dysuria. All other systems reviewed and are negative. The patient's allergies, past history, and medications were reviewed. PHYSICAL EXAM Initial Vitals (see all): BP 148/121 | Pulse 69 | Resp 16 | Temp 99.5 | O2 98 %, Room Air, None | Weight 75.1 kg | Height 152.4 cm | BMI 32.33 kg/m2 Initial Pain Assessment (see all): 8 (severe pain)/10, Aching, location: left abdomen ([facility] Adult Scale 0-10) Physical Exam Constitutional: General: She is not in acute distress. Appearance: She is well-developed. She is not ill-appearing. HENT: Head: Normocephalic and atraumatic. Eyes: Extraocular Movements: Extraocular movements intact. Pupils: Pupils are equal, round, and reactive to light. Cardiovascular: Rate and Rhythm: Normal rate and regular rhythm. Heart sounds: Normal heart sounds. Pulmonary: Effort: Pulmonary effort is normal. Breath sounds: Normal breath sounds. Abdominal: General: Bowel sounds are normal. Palpations: Abdomen is soft. Tenderness: There is abdominal tenderness. Skin: General: Skin is warm. Capillary Refill: Capillary refill takes less than 2 seconds. Neurological: General: No focal deficit present. Mental Status: She is alert and oriented to person, place, and time. Psychiatric: Mood and Affect: Mood normal. Behavior: Behavior normal. PROCEDURES AND TREATMENTS ED Orders | ED Results MEDICAL DECISION MAKING Nursing notes and vital signs were reviewed. Differential Diagnoses Based on my history, physical exam, and evaluation, the differential includes, but is not limited, to the following diagnoses: appendicitis, bowel obstruction, cholelithiasis, diverticulitis and UTI. 73-year-old female presents with diffuse lower abdominal pain. Vitals stable. Labs unremarkable. CTscan unremarkable. She felt improved after treatment. Did call in antibiotics which he was started for symptoms worsened in case this is started of diverticulitis given her significant history. Discharged in stable condition with close follow-up and strict return precautions. Problems Addressed: Generalized abdominal pain: complicated acute illness or injury Amount and/or Complexity of Data Reviewed Independent Historian: spouse Labs: ordered. Details: No leukocytosis. Labs normal Radiology: ordered and independent interpretation performed. Details: No acute perforation per my independent interpretation real-time. ECG/medicine tests: ordered. Risk OTC drugs. Prescription drug management. Parenteral controlled substances. Decision regarding hospitalization. Clinical Impressions Generalized abdominal pain Disposition Discharged. The patient's condition at disposition was: stable. Discharge Medications Disp Refills Start End Ciprofloxacin HCl 500 MG Oral Tablet (Cipro) 20 Tablet 0 08/18/2024 08/28/2024 Sig - Route: Take 1 Tablet by mouth in the morning and 1 Tablet before bedtime. Do all this for 10 days. - Oral Class: ePrescribing Renewals Renewal requests to authorizing provider (Ben Nix MD) <b>prohibited</b> metroNIDAZOLE 500 MG Oral Tablet (Flagyl) 30 Tablet 0 08/18/2024 08/28/2024 Sig - Route: Take 1 Tablet by mouth in the morning and 1 Tablet at noon and 1 Tablet before bedtime. Do all this for 10 days. - Oral Class: ePrescribing Renewals Renewal requests to authorizing provider (Ben Nix MD) <b>prohibited</b> Ben Nix * Leola Conner RN - 08/18/2024 2:17 AM EST Patient reports she started yesterday with left sided abdominal pain and nausea, states she has a history of diverticulitis with perforation and is concerned that is what is going on now. documented in this encounter Miscellaneous Notes * Pt Handout (on AVS) - Ben Nix MD - 08/18/2024 6:14 AM EST [id number] Diverticulitis Some people as they get older get pouches that push into the wall of the colon. These pouches are called diverticuli. They often cause no symptoms. If the pouches become blocked, they can become inflamed and infected This is called diverticulitis. It causes pain in your lower belly (abdomen) and fever. It may also cause nausea, vomiting, diarrhea, or constipation. If not treated, it can become a serious health problem. It can cause an abscess to form around the pouch. The abscess may block the intestinal tract. The pouch may even tear or rupture. This can spread infection throughout the belly. You will need emergency medical treatment if that happens. Sometimes, diverticulitis may not need antibiotics. But antibiotics are most often used. When treatment is started early, oral antibiotics alone may be enough to cure diverticulitis. This method is tried first. But if you don't get better or if your condition gets worse while taking antibiotics, you may need to be admitted to the hospital. There, you will get antibiotics and fluids through an IV (intravenous) line. You may also have to rest your bowel. That means you won't eat or drink for a period of time. Severe cases may need surgery. Home care These guidelines will help you care for yourself at home: During the acute illness, rest and follow your healthcare provider's instructions about diet. Sometimes you will need to be on a clear liquid diet to rest your bowel. Once your symptoms are better, you may be told to eat a low- fiber diet for some time. You can eat foods such as: o Flake cereal o Mashed potatoes o Pancakes and waffles o Pasta o White bread o Rice o Applesauce o Bananas o Eggs o Fish o Poultry o Tofu o Cooked soft vegetables Take antibiotics exactly as told. Don't miss any doses or stop taking the medicine, even if you feel better. Monitor your temperature. Tell your healthcare provider if you have a rising temperature. Preventing future attacks Once you have an episode of diverticulitis, you are at risk for having it again. But you may be able to lower your risk by eating a high-fiber diet (20 g/day to 35 g/day of fiber). This cleans out the colon pouches that already exist. It may also prevent new ones from forming. Foods high in fiber include: Fresh fruits and edible peelings Raw or lightly cooked vegetables Whole-grain cereals and breads Dried beans and peas Bran Here are other steps you can take to help prevent future attacks: Take your medicines, such as antibiotics, as your healthcare provider says. Drink 6 to 8 glasses of water every day, unless told otherwise. Use a heating pad or hot water bottle to help belly cramping or pain. Start an exercise program. Ask your healthcare provider how to get started. You can benefit fromsimple activities such as walking or gardening. Treat diarrhea with a bland diet. Start with liquids only. Then slowly add fiber over time. Watch for changes in your bowel movements (constipation to diarrhea). Prevent constipation by eating a high-fiber diet and taking a stool softener if needed. Get plenty of rest and sleep. Don't take NSAIDs (anti-inflammatory drugs) unless your healthcare provider tells you to. They can increase your risk for diverticulitis. Follow-up care Check in with your healthcare provider as advised or sooner if you are not getting better in the next 2 days. Your provider may advise a colonoscopy to look at the colon once it has healed. When to call your healthcare provider Call your healthcare provider right away if any of these occur: Fever of 100.4F (38C) or higher, or as directed by your healthcare provider Repeated vomiting or swelling of the belly Weakness, dizziness, light-headedness Pain in your belly that gets worse, is severe, or spreads to your back Pain that moves to the right lower belly Rectal bleeding. This means stools that are red, black, or maroon in color. Unexpected vaginal bleeding Last Reviewed Date: 2021 00:00:00 [id number] The [employer]. All rights reserved. This information is not intended as a substitute for professional medical care. Always follow your healthcare professional's instructions. * ED Cementer Machine Note - Leola Conner RN - 08/18/2024 5:30 AM EST Contacted radiology to check on results for CT scan, they report it just got assigned to be read and the read time is 1hr 50 minutes. Patient updated. documented in this encounter Plan of Treatment Scheduled Orders Name Type Priority Associated Diagnoses Orde r Schedule EKG EKG STAT Abdominal pain One Time for 1 Occurrences starting 08/18/2024 until 08/18/2024 Health Maintenance Due Date Last Done Comments Depression Screening 1962 Diabetic Foot Exam 1968 Hepatitis C Screening 1968 DTap/Tdap Vaccines (1 - Tdap) 1969 Cologuard 11/29/1995 Fecal Occult Blood Test 11/29/1995 Sigmoidoscopy 11/29/1995 Zoster Vaccines (2 of 3) 07/18/2012 05/23/2012 Pneumococcal Vaccine: 65+ Years (2 of 2 - PCV) 09/21/2012 09/21/2011 Albumin/Creatinine Ratio 07/06/2020 07/06/2019 *SPIROMETRY ONCE FOR ASTHMA-ADULT 07/29/2022 DXA Scan 08/04/2023 08/04/2021, 01/04, 01/11/2017 *BISPHONATE OR OTHER ACCEPTABLE MEDICATION NEEDED FOR OSTEOPOROSIS (REFER TO SMARTSET #1146) 10/04/2023 COVID-19 Vaccine ( - season) 2024 Influenza Vaccine (FLU shot) (#1) 2024 08/13/2008 HbA1c 07/18/2024 01/16/2024, 09/06, 10/02/2023, Additional history exists Mammogram 08/23/2024 08/23/2023, 08/05, 08/04/2021, Additional history exists Diabetic Eye Exam 09/01/2024 09/01/2023, , 04/27/2023 TSH 04/20/2025 04/20/2024, 09/06, 10/01/2023, Additional history exists GFR 08/18/2025 08/18/2024, 04/05, 04/05/2024, Additional history exists Lipid Panel 06/01/2027 06/01/2022, 02/0 02/2020, 07/06/2019, Additional history exists Colonoscopy 04/09/2031 04/09/2021, 04/09/2021 Colorectal Cancer Screening 04/09/2031 VITAMIN D LEVEL ONCE IN A LIFETIME-USE SMARTSET# 97697 Completed 08/23/2022, 06/01/2022, 06/01/2022, Additional history exists HPV (Gardasil) Vaccine Aged Out No lo nger eligible based on patient's age to complete this topic Hepatitis B Vaccine Aged Out No longe r eligible based on patient's age to complete this topic MENINGOCOCCAL (MENACTRA/MENVEO) Aged Out No longer eligible based on patient's age to complete this topic documented as of this encounter Medical Devices Not on filedocumented as of this encounter Procedures Procedure Name Priority Date/Time Associated Diagnosis Comments URINALYSIS, REFLEX TO MICROSCOPIC STAT 08/18/2024 4:[address] ABD/PELVIS W IV CONTRAST - WO ORAL CONTRAST STAT 08/18/2024 3:27 AM EST LACTATE, WHOLE BLOOD WITH REFLEX IF ABNORMAL STAT 08/18/2024 2:26 AM EST EXTRA GREEN TOP WITH GEL Routine 08/18/2024 2:26 AM EST EXTRA LIGHT BLUE TOP STAT 08/18/2024 2:26 AM EST EXTRA TUBES Routine 08/18/2024 2:26 AM EST DIFFERENTIAL, AUTOMATED STAT 08/18/2024 2:26 AM EST COMPREHENSIVE METABOLIC PANEL STAT 08/18/2024 2:26 AM EST CBC STAT 08/18/2024 2:26 AM EST LIPASE STAT 08/18/2024 2:26 AM EST CBC STAT 08/18/2024 2:26 AM EST documented in this encounter Results * URINALYSIS, REFLEX TO MICROSCOPIC (08/18/2024 4:00 AM EST) Color, Urine Yellow Light Yellow, Yellow, Dark Yellow 08/18/2024 4:12 AM EST [facility] Clarity, Urine Clear Clear 08/18/2024 4:12 AM EST [facility] Glucose, Urine Negative Negative mg/dL 08/18/2024 4:12 AM EST [facility] Bilirubin, Urine Negative Negative 08/18/2024 4:12 AM EST [facility] Ketone, Urine Negative Negative mg/dL 08/18/2024 4:12 AM EST [facility] Specific [place], Urine 1.014 1.003 - 1.030 08/18/2024 4:12 AM EST [facility] Blood, Urine Negative Negative 08/18/2024 4:12 AM EST [facility] pH, Urine 7.0 5.0 - 7.5 Units 08/18/2024 4:12 AM EST [facility] Protein, Urine Negative Negative mg/dL 08/18/2024 4:12 AM EST [facility] Urobilinogen, Urine 0.2 0.2, 1.0 mg/dL 08/18/2024 4:12 AM EST [facility] Nitrite, Urine Negative Negative 08/18/2024 4:12 AM EST [facility] Esterase, Urine Negative Negative 4:12 AM EST [facility] Comment, Urine 08/18/2024 4:12 AM EST LABORATORY [facility] Comment:Screen negative - Mi croscopic not performed. Urine Urine specimen obtained by clean catch procedure / Unknown Non-blood Collection / Unknown 08/18/2024 4:00 AM EST 08/18/2024 4:06 AM EST us Ben Nix MD LAB URINE ORDERABLES Fin al Result LABORATORY [address] [address] * CT ABD/PELVIS W IV CONTRAST - WO ORAL CONTRAST (08/18/2024 3:27 AM EST) Anatomical Region Laterality Modality Body, Abdomen, Pelvis Computed T omography 08/18/2024 3:25 AM EST Impressions 08/18/2024 6:08 AM EST IMPRESSION: No acute abnormality THIS DOCUMENT HAS BEEN ELECTRONICALLY SIGNED BY CINTHYA TSE MD Narrative 08/18/2024 6:08 AM EST PROCEDURE INFORMATION: Exam: CT Abdomen And Pelvis With Contrast Exam date and time: 08/18/2024 3:25 AM Age: 73 years old Clinical indication: Abdominal pain; Localized; Lower; Prior surgery; Surgery date: 6+ months; Surgery type: Resection; Additional info: Abdominal pain, HX diverticulitis TECHNIQUE: Imaging protocol: Computed tomography of the abdomen and pelvis with contrast. Radiation optimization: All CT scans at this facility use at least one of these dose optimization techniques: automated exposure control; mA and/or kV adjustment per patient size (includes targeted exams where dose is matched to clinical indication); or iterative reconstruction. Contrast material: ISOVUE 370; Contrast volume: 80 ml; Contrast route: INTRAVENOUS (IV); COMPARISON: CT ABD/PELVIS W IV CONTRAST - WO ORAL CONTRAST 04/20/2024 7:52 PM FINDINGS: Lungs: The visualized lung bases are clear. Liver: Fatty infiltration is seen within the liver. The liver is enlarged. Fatty infiltration is seen within the liver Gallbladder and biliary ducts: There has been a cholecystectomy Pancreas: No suspicious abnormality is seen within the pancreas Spleen: The spleen is not enlarged Adrenal glands: The adrenal glands are normal Kidneys and ureters: There is no hydronephrosis Stomach and bowel: There has been prior rectal surgery. The stool and gas pattern is nonspecific. There are duodenal diverticula. The gastric outline is normal Appendix: The appendix is normal Intraperitoneal space: No free air. No significant fluid collection. Vasculature: Atheromatous change is seen within the aorta Lymph nodes: No lymphadenopathy is identified Urinary bladder: Bladder is unremarkable Reproductive: Unremarkable as visualized. Bones/joints: There is degenerative change within the spine there is a scoliosis in the spine. There is a central disc herniation with spinal stenosis at L4-L5 Soft tissues: Tiny fat containing umbilical hernia Procedure Note Cinthya Tse MD - 08/18/2024 PROCEDURE INFORMATION: Exam: CT Abdomen And Pelvis With Contrast Exam date and time: 08/18/2024 3:25 AM Age: 73 years old Clinical indication: Abdominal pain; Localized; Lower; Prior surgery;Surgery date: 6+ months; Surgery type: Resection; Additional info: Abdominal pain,HX diverticulitis TECHNIQUE: Imaging protocol: Computed tomography of the abdomen and pelvis withcontrast. Radiation optimization: All CT scans at this facility use at least one ofthese dose optimization techniques: automated exposure control; mA and/or kV adjustment per patient size (includes targeted exams where dose is matchedto clinical indication); or iterative reconstruction. Contrast material: ISOVUE 370; Contrast volume: 80 ml; Contrast route: INTRAVENOUS (IV); COMPARISON: CT ABD/PELVIS W IV CONTRAST - WO ORAL CONTRAST 04/20/2024 7:52 PM FINDINGS: Lungs: The visualized lung bases are clear. Liver: Fatty infiltration is seen within the liver. The liver is enlarged. Fatty infiltration is seen within the liver Gallbladder and biliary ducts: There has been a cholecystectomy Pancreas: No suspicious abnormality is seen within the pancreas Spleen: The spleen is not enlarged Adrenal glands: The adrenal glands are normal Kidneys and ureters: There is no hydronephrosis Stomach and bowel: There has been prior rectal surgery. The stool and gas pattern is nonspecific. There are duodenal diverticula. The gastricoutline is normal Appendix: The appendix is normal Intraperitoneal space: No free air. No significant fluid collection. Vasculature: Atheromatous change is seen within the aorta Lymph nodes: No lymphadenopathy is identified Urinary bladder: Bladder is unremarkable Reproductive: Unremarkable as visualized. Bones/joints: There is degenerative change within the spine there is a scoliosis in the spine. There is a central disc herniation with spinalstenosis at L4-L5 Soft tissues: Tiny fat containing umbilical hernia IMPRESSION IMPRESSION: No acute abnormality THIS DOCUMENT HAS BEEN ELECTRONICALLY SIGNED BY CINTHYA TSE MD us Ben Nix MD RAD CT Final Re sult * EXTRA GREEN TOP WITH GEL (08/18/2024 2:26 AM EST) Blood Venous blood specimen / Unknown 08/18/2024 2:26 AM EST 08/18/2024 2:32 AM EST us Ben Nix MD LAB BLOOD ORDERABLES Fin al Result [facility] [place] [address] * DIFFERENTIAL, AUTOMATED (08/18/2024 2:26 AM EST) WBC 8.07 4.00 - 10.80 K/uL 08/18/2024 2:36 AM EST LABORATORY [facility] Neutrophils % 49.5 40.0 - 75.0 % 08/18/2024 2:36 AM EST LABORATORY [facility] Lymphocytes % 37.3 18.0 - 42.0 % 08/18/2024 2:36 AM EST LABORATORY [facility] Monocytes % 10.7 1.0 - 11.0 % 08/18/2024 2:36 AM EST LAB[facility]ATORY [facility] Eosinophils % 1.9 0.0 - 6.0 % 08/18/2024 2:36 AM EST LABORATORY [facility] Basophils % 0.6 0.0 - 2.0 % 08/18/2024 2:36 AM EST LABORATORY [facility] Absolute Neutrophils 4.00 1.80 - 7.70 K/uL 08/18/2024 2:36 AM EST LABORATORY [facility] Absolute Lymphocytes 3.01 1.00 - 4.80 K/ul 08/18/2024 2:36 AM EST LABORATORY [facility] Absolute Monocytes 0.86 0.00 - 1.10 K/uL 08/18/2024 2:36 AM EST LABORATORY [facility] Absolute Eosinophils 0.15 0.00 - 0.70 K/uL 08/18/2024 2:36 AM EST LAB[facility]ATORY [facility] Absolute Basophils 0.05 0.00 - 0.20 K/uL 08/18/2024 2:36 AM EST LAB[facility]ATORY [facility] Blood Venous blood specimen / Unknown Venipuncture / Unknown 08/18/2024 2:26 AM EST 08/18/2024 2:32 AM EST Ben Nix MD LAB BLOOD ORDERABLES Fin al Result Performing Organization Address City/[facility]/ZIP Co de Phone Number LABORATORY [address] [address] * CBC (08/18/2024 2:26 AM EST) [facility] WBC 8.07 4.00 - 10.80 K/uL 08/18/2024 2:36 AM EST LABORATORY [facility] RBC 4.69 3.85 - 5.15 M/uL 08/18/2024 2:36 AM EST LABORATORY [facility] HGB 14.6 12.0 - 15.3 g/dL 08/18/2024 2:36 AM EST LABORATORY [facility] HCT 42.5 36.0 - 45.2 % 08/18/2024 2:36 AM EST LABORATORY [facility] MCV 90.6 81.5 - 97.5 fL 08/18/2024 2:36 AM EST LABORATORY [facility] MCH 31.1 27.0 - 34.0 pg 08/18/2024 2:36 AM EST LABORATORY [facility] MCHC 34.4 32.0 - 36.0 g/dL 08/18/2024 2:36 AM EST LABORATORY [facility] RDW 12.9 11.5 - 15.5 % 08/18/2024 2:36 AM EST LABORATORY [facility] PLT 231 140 - 400 K/uL 08/18/2024 2:36 AM EST LABORATORY [facility] MPV 9.3 6.6 - 11.1 fL 08/18/2024 2:36 AM EST LABORATORY [facility] Blood Venous blood specimen / Unknown Venipuncture / Unknown 08/18/2024 2:26 AM EST 08/18/2024 2:32 AM EST Ben Nix MD LAB BLOOD ORDERABLES Fin al Result Performing Organization Address City/[facility]/ZIP Co de Phone Number LABORATORY [address] [phone] * LACTATE, WHOLE BLOOD WITH REFLEX IF ABNORMAL (08/18/2024 2:26 AM EST) Pathologist [facility] Lactate 1.3 0.4 - 2.0 mmol/L 08/18/2024 2:35 AM EST LABORATORY [facility] Blood Venous blood specimen / Unknown Venipuncture / Unknown 08/18/2024 2:26 AM EST 08/18/2024 2:32 AM EST Ben Nix MD LAB BLOOD ORDERABLES Fin al Result LABORATORY [address] [phone] * EXTRA LIGHT BLUE TOP (08/18/2024 2:26 AM EST) Blood Venous blood specimen / Unknown Venipuncture / Unknown 08/18/2024 2:26 AM EST 08/18/2024 2:32 AM EST Ben Nix MD LAB BLOOD ORDERABLES Fin al Result Performing Organization Address City/[facility]/ZIP Co de Phone Number LABORATORY [address] [phone] * LIPASE (08/18/2024 2:26 AM EST) [facility] Lipase 44 13 - 60 U/L 08/18/2024 3:32 AM EST LABORATORY [facility] Blood Venous blood specimen / Unknown Venipuncture / Unknown 08/18/2024 2:26 AM EST 08/18/2024 2:32 AM EST Ben Nix MD LAB BLOOD ORDERABLES Fin al Result Performing Organization Address [facility]/ZIP Co de Phone Number LABORATORY [address] [phone] * (ABNORMAL) COMPREHENSIVE METABOLIC PANEL (08/18/2024 2:26 AM EST) [facility] Bun - Saw 18 6 - 20 mg/dL 08/18/2024 2:58 AM EST LABORATORY [facility] Creatinine - Saw 0.9 0.5 - 1.0 mg/dL 08/18/2024 2:58 AM EST LABORATORY [facility] EGFR 68 >=60 mL/min 08/18/2024 2:58 AM EST LABORATORY [facility] Comment:eGFR is calculated b ased on the CKD-EPI 2020 equation. Sodium - Saw 140 135 - 146 mmol/L 08/18/2024 2:58 AM EST LABORATORY [facility] Potassium - Saw 4.0 3.5 - 5.1 mmol/L 08/18/2024 2:58 AM EST LABORATORY [facility] Chloride - Saw 103 98 - 107 mmol/L 08/18/2024 2:58 AM EST LABORATORY [facility] CO2 - Saw 27 22 - 32 mmol/L 08/18/2024 2:58 AM EST LABORATORY [facility] Anion Gap - Saw 10 7 - 15 mmol/L 08/18/2024 2:58 AM EST LABORATORY [facility] Glucose - Saw 121(H) 70 - 120 mg/dL 08/18/2024 2:58 AM EST LABORATORY [facility] Albumin 3.8 3.5 - 4.4 g/dL 08/18/2024 2:58 AM EST LABORATORY [facility] AST 28 10 - 35 U/L 08/18/2024 2:58 AM EST LABORATORY [facility] Alkaline Phosphatase 56 35 - 130 U/L 08/18/2024 2:58 AM EST LABORATORY [facility] Bilirubin, Total 0.7 <=1.2 mg/dL 08/18/2024 2:58 AM EST LABORATORY [facility] Calcium- Saw 10.4(H) 8.4 - 10.2 mg/dL 08/18/2024 2:58 AM EST LABORATORY [facility] Protein, Total 7.5 6.0 - 8.3 g/dL 08/18/2024 2:58 AM EST LABORATORY [facility] ALT 22 10 - 35 U/L 08/18/2024 2:58 AM EST LABORATORY [facility] Blood Venous blood specimen / Unknown Venipuncture / Unknown 08/18/2024 2:26 AM EST 08/18/2024 2:32 AM EST Ben Nix MD LAB BLOOD ORDERABLES Fin al Result LABORATORY [place] [id number] [place] [phone] documented in this encounter Visit Diagnoses Diagnosis Generalized abdominal pain- Primary Abdominal pain, generalized Abdominal pain Abdominal pain, unspecified site documented in this encounter Administered Medications Inactive Administered Medications - up to 3 most recent administrations Medication Order MAR Action Action Date Dose Rate Site Iopamidol (Isovue 370) inj 80 mL 80 mL, Intravenous, ONCE, On 08/18/24 at 0400, For 1 dose, Radiology Medication Routing (Non-IR) Given 08/18/2024 3:27 AM EST 80 mL NSS 0.9% 1,000 mL bolus infusion Peripheral IV, at 1,000 mL/hr Administer over 60 Minutes, Administer entire volume within 60 minutes or less., ONCE, 1 dose, On 08/18/24 at 0315 New Bag 08/18/2024 3:03 AM EST 1,000 mL 1000 mL/hr documented in this encounter Active and Recently Administered Medications Times are shown in EST. Scheduled Medication Order 08/16/2024 08/17/2024 08/18/2024 Iopamidol (Isovue 370) inj 80 mL (COMPLETED) 80 mL, Intravenous, ONCE, On 08/18/24 at 0400, For 1 dose, Radiology Medication Routing (Non-IR) 0327 (Given - Provid er: Juan A Kramer, RT) Morphine Sulfate (PF) inj 4 mg 4 mg, Intravenous, ONCE, On 08/18/24 at 0315, For 1 dose 0315 (Not Given - Pr ovider: Leola Conner RN - Reason: Refused-Notify Provider) NSS 0.9% 1,000 mL bolus infusion (COMPLETED) Peripheral IV, at 1,000 mL/hr Administer over 60 Minutes, Administer entire volume within 60 minutes or less., ONCE, 1 dose, On 08/18/24 at 0315 0303 (New Bag - Prov ider: Leola Conner, CRISTA)0400 (Stopped - Provider: Leola Conner RN) ondansetron (Zofran) inj 4 mg 4 mg, Intravenous, ONCE, On 08/18/24 at 0315, For 1 dose 0315 (Not Given - Pr ovider: Leola Conner RN - Reason: Refused-Notify Provider) documented in this encounter Advance Directives * Full Code (Latest Code Status on File) Date Activated Date Inactivated Comments 10/02/2023 2:32 AM 10/02/2023 5:12 PM This order r eflects the patients wishes and were consensually agreed upon. Question Answer Comments Discussion of Advance Directives occurred with: Patient Does the patient have a Living Will? No Does the patient have Health Care Power of Attor bell? No * Full Code Date Activated Date Inactivated Comments 05/14/2021 9:21 PM 05/18/2021 3:09 PM This order re flects the patients wishes and were consensually agreed upon. * Full Code Date Activated Date Inactivated Comments 04/18/2021 4:43 AM 04/20/2021 4:34 PM Question Answer Comments Discussion of Advance Directives occurred with: Not Discussed Healthcare Agents on File Name Relationship Healthcare Agent Relationshi p Communication Travis Zurita Spouse First Alternate Health Care Agent Care Teams Control Panel Tester Relationship Specialty Start Date End Date Agustina Dalton MD [address] [place] [address] PCP - General Family Medicine 10/02/23 documented as of this encounter
--- OUTSIDE RECORDS SUMMARY | 2024-10-17 21:33 | External Medical Summary ---
Author Name Unknown Address Unknown Organization K1G:LABORATORY [facility] - [address] [facility] [phone] Laboratory Report Ordering Provider Test Date Status TOMMIE SILVERMAN 04/20/2024 19:44:26 Final Observation Date Value Abnormality Reference (Units ) Status Body temperature 04/20/2024 19:44:26 37.0 (C) Final pH of Venous blood 04/20/2024 19:44:26 7.378 7.320-7.430 (units) Final Carbon dioxide [Partial pressure] in Venous blood 04/20/2024 19:44:26 50.0 40.0-60.0 (mmHg) Final Oxygen [Partial pressure] in Venous blood 04/20/2024 19:44:26 20.2 Below low normal 25.0-50.0 (mmHg) Final Base excess, Capillary 04/20/2024 19:44:26 3.2 Above high normal -2.0-2.0 (mmol/L) Final Hemoglobin [Mass/volume] in Blood by Oximetry 04/20/2024 19:44:26 14.0 12.0-15.3 (g/dL) Final Oxyhemoglobin, Venous (FO2HB) 04/20/2024 19:44:26 32.4 Below low normal 40.0-85.0 (% total Hgb) Final Carboxyhemoglobin 04/20/2024 19:44:26 1.0 <=1.5 (% total Hgb) Final Smokers: 0-9.0 % Methemoglobin 04/20/2024 19:44:26 0.9 <= 1.5 (% total Hgb) Final Deoxyhemoglobin/Hemoglo bin.total in Venous blood 04/20/2024 19:44:26 65.7 (% total Hgb) Final Oxygen content in Venous blood 04/20/2024 19:44:26 6.4 Below low normal 7.0-18.0 (%vol) F inal Bicarbonate, Venous, POC (i-STAT) 04/20/2024 19:44:26 29.4 23.0-31.0 (mmol/L) Final Performing Location LABORATORY [facility] - [address] [facility] [phone]
--- OUTSIDE RECORDS SUMMARY | 2024-10-17 21:33 | External Medical Summary | Summary of Care ---
Author Name Unknown Organization [facility] Address [address] [place] [address] Phone [phone] Care Team Providers Care Galley Boy Name Role Phone Agustina Dalton MD Primary Care Provid er Reason for Visit * Reason Comments Outpatient Testing Encounter Details Date Type Department Care Team (Late st Contact Info) Description 04/25/2024 2:20 PM EDT Laboratory Laboratory, [address] [phone] [facility], Lab [address] [place] [id number] Shortness of breath Allergies Active Allergy Reactions Criticality Noted Date [...] as of this encounter (statuses as of 04/25/2024) Medications Medication Sig Dispensed Refills Start Date End Date Status valACYclovir HCl 1 GM Oral Tablet (VALTREX) Take 1 Tablet by mouth as needed for Other (cold sore). 02/02/2019 Active Glucose Blood In Vitro Strip Use to test blood sugar once daily 07/12/2019 Active FreeStyle Lancets Use to text blood sugar once daily Dx: E11.8 07/12/2019 Active Cholecalciferol 50 MCG (2000 UT) Oral [...] the morning and 1 Tablet before bedtime. 01/19/2021 Active B Complex Vitamins Oral Capsule Take [...] as needed for Wheezing. 18 g 1 10/02/2023 Active Colestipol HCl 1 GM Oral Tablet (Colestid) Take 1 Tablet by mouth in the morning. 04/26/2023 Active Montelukast Sodium 10 MG Oral Tablet (Singulair) Take 1 Tablet by mouth every evening. 12/13/2023 Active Insulin Glargine 100 Unit/ml SC SOLN injection Inject 10 Units under the skin at bedtime. Active documented as of this encounter (statuses as of 04/25/2024) Active Problems Problem Noted Date Diagnosed Date Influenza A with pneumonia 10/02/2023 senior living current use of anticoagulant therapy 0 10/02/2023 Optic neuritis, retrobulbar (acute), left 2022 Pseudophakia of both eyes 08/11/2023 S/P cholecystectomy 08/31/2022 Vitamin D deficiency 03/11/2022 Age-related osteoporosis wit hout current pathological fracture 08/04/2021 S/P partial colectomy 07/28/2021 Overview: For diverticulitis Decreased diffusion capacity of lung 05/05/2021 Multiple subsegmental pulmon valentino emboli without acute cor pulmonale 01/07/2021 Asthma 12/25/2020 Gastroesophageal reflux disease 12/25/2020 Paroxysmal atrial fibrillation 12/23/2020 Overview: CHADsVASc: 7 Last Assessment & Plan: Pt [...] completely 'heal', then obtain a 30 day media monitor with follow up after. 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 Pt on plavix as she failed asa. Headache around the eyes 12/10/2019 Encounter for examination fo r normal comparison and control in clinical research program 10/24/2017 04/07/2020 Overview: DO NOT DELETE [facility] DETECT Study: Project # [id number], Rewrite Editor: Nir Arroyo, PhD. SUMMARY: Goal: Establish test [...] contact study staff at ; after hours Rewrite Editor via the [employer] hospital waterworks operator . Please contact study team before resolving/deleting from patients problem list. Study phone number: [phone]. Diagnosis changed due to Research Module. Go to Snapshot for study details. Encounter for examination fo r normal comparison and control in clinical research program 10/24/2017 05/06/2022 Overview: DO NOT DELETE - [employer] DETECT Study: Project # [id number], Rewrite Editor: Mariusz Vallejo, MS, MPH. SUMMARY: Goal: Establish [...] contact study staff at ; after hours Rewrite Editor via the [employer] [employer] hospital waterworks operator . - Please contact study team before resolving/deleting from patients problem list. Study phone number: [phone]. Diagnosis changed due to Research Module. Go to Snapshot for study details. documented as of this encounter (statuses as of 04/25/2024) Social History Tobacco Use Types Packs/Day Years Used Date Smoking Tobacco: Never Smokeless Tobacco: Never Alcohol Use Standard Drinks/Week Comments Yes 0 (1 standard drink = 0.6 oz pur e alcohol) very occasionally Utilities Answer Date Recorded Do you have trouble paying y our heating, water, or electric bill? (Adult - for ages 18 years and over) Not on file 02/21/2024 Is your family able to pay t he heat, water, or electric bill? (Household - for ages 0-17 years) Not on file 02/21/2024 Does your family have access to good internet? (Household - for ages 0-17 years) Not on file 02/21/2024 Social Connections Answer Date Recorded How often do you feel lonely or isolated from those around you? (Adult - for ages 18 years and over) Not on file 02/21/2024 Sex and Gender Information Value Date Recorded Sex Assigned at Not on file Gender Identity Not on file Sexual Orientation Not on file Job Start Date Occupation Industry Not on file Not on file Not on file documented as of this encounter Functional Status Functional Status Response Date of Assess ment Are you deaf or do you have serious difficulty h earing? No 10/02/2023 Are you blind or do you have serious difficulty seeing, even when wearing glasses? No 10/02/2023 Do you have serious difficul ty walking or climbing stairs? (5 years old or older) No 10/02/2023 Do you have difficulty dress ing or bathing? (5 years old or older) No 10/02/2023 Because of a physical, menta l, or emotional condition, do you have difficulty doing errands alone such as visiting a doctor s office or shopping? (15 years old or older) No 10/02/19 Cognitive Status Response Date of Assessm ent Because of a physical, menta l, or emotional condition, do you have serious difficulty concentrating, remembering, or making decisions? (5 years old or older) No 10/02/2023 documented as of this encounter Plan of Treatment Health Maintenance Due Date Last Done Comments Depression Screening 1962 Diabetic Foot Exam 1968 Hepatitis C Screening 1968 DTaP,Tdap,and Td Vaccines (1 - Tdap) 1969 Cologuard 11/29/1995 Fecal Occult Blood Test 11/29/1995 Sigmoidoscopy 11/29/1995 Zoster Vaccines (2 of 3) 07/18/2012 05/23/2012 Pneumococcal Vaccine: 65+ Years (2 of 2 - PCV) 09/21/2012 09/21/2011 Albumin/Creatinine Ratio 07/06/2020 07/06/2019 *SPIROMETRY ONCE FOR ASTHMA-ADULT 07/29/2022 COVID-19 Vaccine ( - 2022- season) 2023 DXA Scan 08/04/2023 08/04/2021, 01/04, 01/11/2017 *BISPHONATE OR OTHER ACCEPTABLE MEDICATION NEEDED FOR OSTEOPOROSIS (REFER TO SMARTSET #1146) 10/04/2023 Influenza Vaccine (FLU shot) (#1) 2024 08/13/2008 HbA1c 07/18/2024 01/16/2024, 09/06, 10/02/2023, Additional history exists Mammogram 08/23/2024 08/23/2023, 08/05, 08/04/2021, Additional history exists Diabetic Eye Exam 09/01/2024 09/01/2023, , 04/27/2023 GFR 04/20/2025 04/20/2024, 0809/2023, 01/16/2024, Additional history exists TSH 04/20/2025 04/20/2024, 09/06, 10/01/2023, Additional history exists Lipid Panel 06/01/2027 06/01/2022, 020 02/2020, 07/06/2019, Additional history exists Colonoscopy 04/09/2031 04/09/2021, 04/09/2021 Colorectal Cancer Screening 04/09/2031 VITAMIN D LEVEL ONCE IN A LIFETIME-USE SMARTSET# 55761 Completed 08/23/2022, 06/01/2022, 06/01/2022, Additional history exists [...] Not on filedocumented as of this encounter Visit Diagnoses Diagnosis Shortness of breath documented in this encounter Advance Directives * [...] First Alternate Health Care Agent Care Teams Galley Boy Relationship Specialty Start Date End Date Agustina Dalton MD [address] [place] [address] PCP - General Family Medicine 10/02/23 documented as of this encounter
--- OUTSIDE RECORDS SUMMARY | 2024-10-17 21:33 | External Medical Summary ---
Author Name Unknown Address Unknown Organization K1G:LABORATORY [facility] - [address] [place] [id number] Laboratory Report Ordering Provider Test Date Status JUANJOSE OSBORNE 08/18/2024 02:26:52 Final Observation Date Value Abnormality Reference (Units ) Status SYNC LEUKOCYTES IN BLOOD BY AUTOMATED COUNT 08/18/2024 02:26:52 8.07 4.00-10.80 (K/uL) Final Segs 08/18/2024 02:26:52 49.5 40.0-75.0 (%) Final Lymphs % 08/18/2024 02:26:52 37.3 18.0-42.0 (%) Final Monos 08/18/2024 02:26:52 10.7 1.0-11.0 (%) Final Eosinophils 08/18/2024 02:26:52 1.9 0.0-6.0 (%) Final Basos 08/18/2024 02:26:52 0.6 0.0-2.0 (%) Final Absolute Segs 08/18/2024 02:26:52 4.00 1.80-7.70 (K/uL) Final Lymphs, absolute 08/18/2024 02:26:52 3.01 1.00-4.80 (K/ul) Final Monos, Abs 08/18/2024 02:26:52 0.86 0.00-1.10 (K/uL) Final Eos, Abs 08/18/2024 02:26:52 0.15 0.00-0.70 (K/uL) Final Basos, Abs 08/18/2024 02:26:52 0.05 0.00-0.20 (K/uL) Final Performing Location LABORATORY [facility] - [address] [facility] [address]
--- OUTSIDE RECORDS SUMMARY | 2024-10-17 21:33 | External Medical Summary ---
Author Name Unknown Address Unknown Organization K1G:[facility] - [address] [place] [phone] Laboratory Report Ordering Provider Test Date Status HERRERATOMMIE 04/20/2024 19:44:26 Final Observation Date Value Abnormality Reference (Units ) Status TSH 04/20/2024 19:44:26 0.81 0.27-4.20 (uIU/mL) Final Performing Location [facility] - [address] [place] [phone]
--- OUTSIDE RECORDS SUMMARY | 2024-10-17 21:33 | External Medical Summary ---
Author Name Unknown Address Unknown Organization K1G:[facility] - [address] [place] [phone] Laboratory Report Ordering Provider Test Date Status JUANJOSE OSBORNE 08/18/2024 02:26:52 Final Observation Date Value Abnormality Reference (Units ) Status Lipase 08/18/2024 02:26:52 44 13-60 (U/L ) Final Performing Location [facility]ATORY [facility] - [address] [place] [phone]
--- OUTSIDE RECORDS SUMMARY | 2024-10-17 21:33 | External Medical Summary ---
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 20:09:21 Final Observation Date Value Abnormality Reference (Units ) Status Color of Urine by Auto 04/20/2024 20:09:21 Yellow Light Yellow, Yellow, Dark Yellow Final Clarity, Urine 04/20/2024 20:09:21 Clear Clear Final Glucose [Mass/volume] in Urine by Automated test strip 04/20/2024 20:09:21 Negative Negative (mg/dL) Final Bilirubin.total [Presence] in Urine by Automated test strip 04/20/2024 20:09:21 Negative Negative Final Ketones [Mass/volume] in Urine by Automated test strip 04/20/2024 20:09:21 Negative Negative (mg/dL) Final Specific gravity, Urine 04/20/2024 20:09:21 1.010 1.003-1.030 Final Hemoglobin [Presence] in Urine by Automated test strip 04/20/2024 20:09:21 Negative Negative Final pH, Urine 04/20/2024 20:09:21 6.0 5.0-7.5 (Units) Final Protein [Mass/volume] in Urine by Automated test strip 04/20/2024 20:09:21 Negative Negative (mg/dL) Final Urobilinogen [Mass/volume] in Urine by Automated test strip 04/20/2024 20:09:21 0.2 0.2, 1.0 (mg/dL) Final Nitrite [Presence] in Urine by Automated test strip 04/20/2024 20:09:21 Negative Negative Final Leukocyte esterase [Presence] in Urine by Automated test strip 04/20/2024 20:09:21 Negative Negative Final RBC, Urine 04/20/2024 20:09:21 0-2 0-2 (/HPF) Final WBC, Urine 04/20/2024 20:09:21 0-2 0-2 (/HPF) Final Bacteria [#/area] in Urine sediment by Microscopy high power field 04/20/2024 20:09:21 0-25 0-25 (/HPF) Final CULTURE, URINE - [facility] 04/20/2024 20:09:21 Final Culture not indicated by uri nalysis results\[id number]\ Performing Location LABORATORY [facility] - [address] [place] [phone]
--- OUTSIDE RECORDS SUMMARY | 2024-10-17 21:33 | External Medical Summary | Summary of Care ---
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 Name Role Phone Agustina Dalton MD Primary Care Provid er Reason for Visit * Reason Comments Headache * Auth/Cert Specialty Diagnoses / Procedures Referred By Contac t Referred To Contact [facility] [address] [place] [address] Phone: [phone] [place] [address] Referral ID Status Reason Start Date Expiration Date Visits Re quested Visits Authorized [id number] Encounter Details Date Type Department Care Team (Late st Contact Info) Description 04/20/2024 7:02 PM EDT - 04/20/2024 9:10 PM EDT Emergency [facility] Emergency Department ([facility]) [facility] [place] [address] Kerry Wasserman MD [address] [place] [address] Tension-type headache, not intractable, unspecified chronicity pattern (Primary Dx); Screening for cardiovascular condition; Type 2 diabetes mellitus with hyperglycemia, unspecified whether jail insulin use (HCC) Discharge Disposition: Home - Self Care Allergies [...] as of this encounter (statuses as of 04/21/2024) Medications Medication Sig Dispensed Refills Start Date [...] as of this encounter (statuses as of 04/21/2024) Active Problems Problem Noted Date Diagnosed Date Influenza A with pneumonia 10/02/2023 detention current use of anticoagulant therapy 0 10/02/2023 [...] completely 'heal', then obtain a 30 day site monitor with follow up after. At that [...] as of this encounter (statuses as of 04/21/2024) Resolved Problems Problem Noted Date Diagnosed Date [...] program 10/24/2017 04/07/2020 Overview: DO NOT DELETE [facility] DETECT Study: Project # [id number], Measurement Operator: Nir Arroyo, PhD. SUMMARY: Goal: Establish test [...] contact study staff at ; after hours Measurement Operator via the [facility] hospital broadcast transmitter operator . Please contact study team before resolving/deleting from patients problem list. Study phone number: [phone]. Diagnosis changed due to Research Module. Go to Snapshot for study details. Encounter for examination fo r normal comparison and control in clinical research program 10/24/2017 05/06/2022 Overview: DO NOT DELETE - [facility] Study: Project # [id number], Measurement Operator: Mariusz Vallejo, MS, MPH. SUMMARY: Goal: Establish [...] contact study staff at ; after hours Measurement Operator via the [facility] hospital broadcast transmitter operator . - Please contact study team before resolving/deleting from patients problem list. Study phone number: [phone]. Diagnosis changed due to Research Module. Go to Snapshot for study details. documented as of this encounter (statuses as of 04/21/2024) Social History Tobacco Use Types Packs/Day Years [...] Sign Reading Time Taken Comments Blood Pressure 154/78 04/20/2024 9:00 PM EDT Pulse 74 04/20/2024 9:00 PM EDT Temperature 36 C (96.8 F) 04/20/2024 6:56 PM EDT Respiratory Rate 20 04/20/2024 9:00 PM EDT Oxygen Saturation 98% 04/20/2024 9:00 PM EDT Inhaled Oxygen Concentration - - Weight - - Height 152.4 cm (5') 04/20/2024 7:07 PM EDT Body Mass Index - - documented in this encounter Functional Status Functional Status Response [...] No 10/02/2023 documented as of this encounter Discharge Instructions * Discharge Instructions* Kerry Wasserman MD - 04/20/2024 9:01 PM EDT You were seen in the emergency department for headache and high blood sugar. Your workup was reassuring. Your blood glucose after receiving fluids was 204. CT scan of your abdomen did not show acute concerning findings. We did see chronic lung changes; however, it does appear that you have history of asthma. We do recommend following up with your primary care physician. You did not require any medication changes at this time. Feel free to return to ED with any new or worsening symptoms. documented in this encounter ED Notes * Kerry Wasserman MD - 04/20/2024 9:10 PM EDT HISTORY OF PRESENT ILLNESS Jeannette Zurita is a 73 year old female who presents to the ED for evaluation of Headache. The patientwas seen at 04/20/241903. 73-year-old female past medical history of asthma, hypertension, type 2 diabetes, diverticulitis status post partial colectomy presenting with chief complaint of headache. Patient reports feeling "not right" over the past week. She notes she was diagnosed with type 2 diabetes many years ago which was previously diet and exercise controlled. She recently was started on insulin this week due to blood glucose being over 400 repeatedly. Patient states her blood sugar is now in the 200s. She is due to take her Lantus at 9:00 p.m. tonight. She also reports having a chest cold approximately 10 days prior to this visit. She reports a cough, heaviness in her chest. She also reports feeling tight when she is trying to breathe. She also notes a generalized abdominal cramping that has been occurring for several weeks. She denies any associated fevers, chills, nausea, vomiting, dysuria. She does report associated headache for which she took Tylenol prior to arrival and states it is beginning to subside. Review of Systems Constitutional: Positive for fatigue. Negative for chills and fever. HENT: Negative for congestion. Eyes: Negative for visual disturbance. Respiratory: Positive for cough and shortness of breath. Cardiovascular: Positive for chest pain. Negative for leg swelling. Gastrointestinal: Positive for abdominal pain. Negative for diarrhea and vomiting. Endocrine: Negative for polyuria. Genitourinary: Negative for dysuria and flank pain. Musculoskeletal: Negative for back pain. Skin: Negative for rash. Neurological: Positive for headaches. Negative for seizures. Hematological: Negative for adenopathy. Psychiatric/Behavioral: Negative for agitation and confusion. The patient's allergies, past history, and medications were reviewed. PHYSICAL EXAM Initial Vitals (see all): BP 141/71 | Pulse 68 | Resp 22 | Temp 96.8 | O2 99 %, Room Air, None | Weight 73.48 kg | Height 152.4 cm | BMI 31.64 kg/m2 Initial Pain Assessment (see all): 4 (moderate pain)/10, Throbbing, location: head ([facility] Adult Scale 0-10) Physical Exam Vitals and nursing note reviewed. Constitutional: General: She is not in acute distress. Appearance: She is well-developed. HENT: Head: Normocephalic and atraumatic. Right Ear: External ear normal. Left Ear: External ear normal. Nose: Nose normal. Eyes: Conjunctiva/sclera: Conjunctivae normal. Pupils: Pupils are equal, round, and reactive to light. Cardiovascular: Rate and Rhythm: Normal rate and regular rhythm. Pulmonary: Effort: Pulmonary effort is normal. No respiratory distress. Breath sounds: Normal breath sounds. Abdominal: Palpations: Abdomen is soft. Tenderness: There is no abdominal tenderness. There is no right CVA tenderness or left CVA tenderness. Musculoskeletal: General: No swelling. Cervical back: Neck supple. Right lower leg: No edema. Left lower leg: No edema. Skin: General: Skin is warm and dry. Capillary Refill: Capillary refill takes less than 2 seconds. Neurological: Mental Status: She is alert and oriented to person, place, and time. Psychiatric: Mood and Affect: Mood normal. PROCEDURES AND TREATMENTS ED Orders | ED Results MEDICAL DECISION MAKING Nursing notes and vital signs were reviewed. ED Course as of 04/20/242238Apr 20, 20241946 73-year-old female past medical history of asthma, hypertension, type 2 diabetes, diverticulitis status post partial colectomy presenting with chief complaint of headache. Patient reports feeling "not right" over the past week. She notes she was diagnosed with type 2 diabetes many years ago which was previously diet and exercise controlled. She recently was started on insulin this week due to blood glucose being over 400 repeatedly. Patient states her blood sugar is now in the 200s. She isdue to take her Lantus at 9:00 p.m. tonight. She also reports having a chest cold approximately 10 days prior to this visit. She reports a cough, heaviness in her chest. She also reports feeling tight when she is trying to breathe. She also notes a generalized abdominal cramping that has been occurring for several weeks. She denies any associated fevers, chills, nausea, vomiting, dysuria. She does report associated headache for which she took Tylenol prior to arrival and states it is beginning to subside. [CS] ED Course User Index [CS] Kerry Wasserman MD Differential Diagnoses Based on my history, physical exam, and evaluation, the differential includes, but is not limited, to the following diagnoses: Dysrhythmia, pneumonia, bronchitis, electrolyte abnormality, hyperglycemia, DKA, HHS. Amount and/or Complexity of Data Reviewed Labs: ordered. Radiology: ordered. ECG/medicine tests: ordered. Risk Prescription drug management. Patient seen and examined at bedside. Vital signs stable. Physical exam and history as noted above.Differential diagnosis noted above. Of note, patient is in no apparent distress , saturating on room air, no increased work of breathing, normotensive, afebrile. Patient's laboratory workup was largely reassuring. Patient received 1 L normal saline solution. Blood glucose on BMP 204. EKG per my interpretation revealed normal sinus rhythm, ventricular rate of 75 beats per minute, no signs of acute ischemia, no STEMI criteria met. Chest x-ray per my interpretation did reveal chronic changes. CT abdomen pelvis negative for acute concerning findings. These findings were discussed with patient and . Based on these findings and constellation of symptoms it was deemed appropriate for patient to follow up outpatient. Return precautions discussed and verbally acknowledged. Written discharge instructions provided. Clinical Impressions Tension-type headache, not intractable, unspecified chronicity pattern Type 2 diabetes mellitus with hyperglycemia, unspecified whether jail insulin use (HCC) Disposition Discharged. The patient's condition at disposition was: stable. Kerry Wasserman * Leola Conner RN - 04/20/2024 7:05 PM EDT Patient reports that she has a headache that started this afternoon. She states her blood sugar hasbeen high and she just started using insuline this week and her sugar continues to be high however not as high as it was prior. Prior sugars were 400, sugar now 256. Pt is due to take her lantus at 2100 tonight. She also reports she had a chest cold 10 days ago that is improved but still not gone. R eports a cough and heaviness in chest. documented in this encounter Miscellaneous Notes * ED Fly Frame Tender Note - Sejal Cardoso RN - 04/20/2024 9:10 PM EDT Pt given discharge instructions at this time, and she verbalized understanding of all instructions at time of discharge. Pt is to f/u with her PCP. Pt and pt's significant other both ambulated out [place] with all belongings. * ED Fly Frame Tender Note - Sejal Cardoso RN - 04/20/2024 8:05 PM EDT Pt states that her headache is slowly getting better and does not want any pain medication at this time. Dr. Wasserman aware of this. documented in this encounter Plan of Treatment Scheduled Orders Name Type Priority Associated Diagnoses Orde r Schedule EKG EKG STAT Screening for cardiovascular condition Perform Now for 1 Occurrences starting 04/20/2024 until 04/20/2024 Health Maintenance Due Date Last Done Comments Depression Screening 1962 Diabetic Foot Exam 1968 Hepatitis C Screening 1968 DTaP,Tdap,and Td Vaccines (1 - Tdap) 1969 Cologuard 11/29/1995 Fecal Occult Blood Test 11/29/1995 Sigmoidoscopy 11/29/1995 Zoster Vaccines (2 of 3) 07/18/2012 05/23/2012 Pneumococcal Vaccine: 65+ Years (2 of 2 - PCV) 09/21/2012 09/21/2011 Albumin/Creatinine Ratio 07/06/2020 07/06/2019 *SPIROMETRY ONCE FOR ASTHMA-ADULT 07/29/2022 COVID-19 Vaccine (1 - season) 2023 DXA Scan 08/04/2023 08/04/2021, 01/04, [...] D LEVEL ONCE IN A LIFETIME-USE SMARTSET# [id number] Completed 08/23/2022, 06/01/2022, 06/01/2022, Additional history exists [...] Date/Time Associated Diagnosis Comments URINALYSIS, REFLEX TO CULTURE STAT 04/20/2024 8:09 PM EDT URINALYSIS, REFLEX TO CULTURE (CUP ONLY) STAT 04/20/2024 8:09 PM EDT URINALYSIS, REFLEX TO CULTURE (NOT FOR NEUTROPENIC PATIENTS) STAT 04/20/2024 8:09 PM EDT XR CHEST 1 VIEW STAT 04/20/2024 8:[address] ABD/PELVIS W IV CONTRAST - WO ORAL CONTRAST STAT 04/20/2024 7:56 PM EDT LACTATE, WHOLE BLOOD WITH REFLEX IF ABNORMAL STAT 04/20/2024 7:44 PM EDT DIFFERENTIAL, AUTOMATED STAT 04/20/2024 7:44 PM EDT TROPONIN T, HIGH SENSITIVITY STAT 04/20/2024 7:44 PM EDT BLOOD GAS, VENOUS STAT 04/20/2024 7:4 4 PM EDT HEPATIC FUNCTION PANEL STAT 04/20/2024 7:44 PM EDT BASIC METABOLIC PANEL STAT 04/20/2024 7:44 PM EDT CBC STAT 04/20/2024 7:44 PM EDT LIPASE STAT 04/20/2024 7:44 PM EDT CBC STAT 04/20/2024 7:44 PM EDT TSH Add-on 04/20/2024 7:44 PM EDT RESPIRATORY PATHOGEN PANEL, PCR STAT 04/20/2024 7:37 PM EDT documented in this encounter Results * URINALYSIS, REFLEX TO CULTURE (04/20/2024 8:09 PM EDT) Color, Urine Yellow Light Yellow, Yellow, Dark Yellow 04/20/2024 8:27 PM EDT LABORATORY [facility] Clarity, Urine Clear Clear 04/20/2024 8:27 PM EDT LABORATORY [facility] Glucose, Urine Negative Negative mg/dL 04/20/2024 8:27 PM EDT LABORATORY [facility] Bilirubin, Urine Negative Negative 04/20/2024 8:27 PM EDT LABORATORY [facility] Ketone, Urine Negative Negative mg/dL 04/20/2024 8:27 PM EDT LABORATORY [facility] Specific [place], Urine 1.010 1.003 - 1.030 04/20/2024 8:27 PM EDT LABORATORY [facility] Blood, Urine Negative Negative 04/20/2024 8:27 PM EDT LABORATORY [facility] pH, Urine 6.0 5.0 - 7.5 Units 04/20/2024 8:27 PM EDT LABORATORY [facility] Protein, Urine Negative Negative mg/dL 04/20/2024 8:27 PM EDT LABORATORY [facility] Urobilinogen, Urine 0.2 0.2, 1.0 mg/dL 04/20/2024 8:27 PM EDT LABORATORY [facility] Nitrite, Urine Negative Negative 04/20/2024 8:27 PM EDT LABORATORY [facility] Esterase, Urine Negative Negative 04/20/2024 8:27 PM EDT LABORATORY [facility] RBC, Urine 0-2 0 - 2 /HPF 04/20/2024 8:27 PM EDT LABORATORY [facility] WBC, Urine 0-2 0 - 2 /HPF 04/20/2024 8:27 PM EDT LABORATORY [facility] Bacteria, Urine 0-25 0 - 25 /HPF 04/20/2024 8:27 PM EDT LABORATORY [facility] Culture, Urine 04/20/2024 8:27 PM EDT LABORATORY [facility] Comment:Culture not indicate d by urinalysis results Urine Urine specimen obtained by clean catch procedure / Unknown Non-blood Collection / Unknown 04/20/2024 8:09 PM EDT 04/20/2024 8:15 PM EDT Kerry Wasserman MD LAB URINE ORDERABLES LABORATORY [place] [id number] [place] [address] * URINALYSIS, REFLEX TO CULTURE (CUP ONLY) (04/20/2024 8:09 PM EDT) Urinalysis, Reflex to Culture Specimen Specimen collected and received 04/20/2024 8:20 PM EDT LABORATORY [facility] Urine Urine specimen obtained by clean catch procedure / Unknown Non-blood Collection / Unknown 04/20/2024 8:09 PM EDT 04/20/2024 8:16 PM EDT Kerry Wasserman MD LAB URINE ORDERABLES LABORATORY [place] [id number] [place] [address] * XR CHEST 1 VIEW (04/20/2024 8:01 PM EDT) Anatomical Region Laterality Modality Chest Computed Radiogr aphy 04/20/2024 8:02 PM EDT Impressions 04/20/2024 8:28 PM EDT IMPRESSION: 1. New prominence of the interstitial pattern most likely representing new edema superimposed on chronic change. THIS DOCUMENT HAS BEEN ELECTRONICALLY SIGNED BY ILYA EUGENE MD Narrative 04/20/2024 8:28 PM EDT PROCEDURE INFORMATION: Exam: XR Chest Exam date and time: 04/20/2024 8:02 PM Age: 73 years old Clinical indication: Shortness of breath; Additional info: SOB TECHNIQUE: Imaging protocol: Radiologic exam of the chest. Views: 1 view. COMPARISON: DX XR CHEST 2 VIEWS 04/09/2024 11:29 AM FINDINGS: Lungs: There is new mild prominence of the interstitial pattern throughout. This most likely represents new interstitial edema superimposed on chronic change. There is no consolidation. Pleural spaces: No effusions or pneumothoraces. Heart/Mediastinum: The heart is not enlarged. The aorta is atherosclerotic. There is no aneurysm. Bones/joints: No acute bony change of the ribs identified. Procedure Note Ilya Eugene MD - 04/20/2024 PROCEDURE INFORMATION: Exam: XR Chest Exam date and time: 04/20/2024 8:02 PM Age: 73 years old Clinical indication: Shortness of breath; Additional info: SOB TECHNIQUE: Imaging protocol: Radiologic exam of the chest. Views: 1 view. COMPARISON: DX XR CHEST 2 VIEWS 04/09/2024 11:29 AM FINDINGS: Lungs: There is new mild prominence of the interstitial patternthroughout. This most likely represents new interstitial edema superimposed on chronic change. There is no consolidation. Pleural spaces: No effusions or pneumothoraces. Heart/Mediastinum: The heart is not enlarged. The aorta isatherosclerotic. There is no aneurysm. Bones/joints: No acute bony change of the ribs identified. IMPRESSION IMPRESSION: 1. New prominence of the interstitial pattern most likely representingnew edema superimposed on chronic change. THIS DOCUMENT HAS BEEN ELECTRONICALLY SIGNED BY ILYA EUGENE MD Kerry Wasserman MD RADIOLOGY (RAD GENER AL) * CT ABD/PELVIS W IV CONTRAST - WO ORAL CONTRAST (04/20/2024 7:56 PM EDT) Anatomical Region Laterality Modality Body, Abdomen, Pelvis Computed T omography 04/20/2024 7:52 PM EDT Impressions 04/20/2024 8:35 PM EDT IMPRESSION: 1. Diffuse hepatic steatosis without focal lesion. 2. Prior rectosigmoid surgery without obstruction. There are diverticula of the sigmoid colon but no diverticulitis. No free air or free fluid. 3. No renal calculi or renal obstruction. 4. Small hiatal hernia. THIS DOCUMENT HAS BEEN ELECTRONICALLY SIGNED BY ILYA EUGENE MD Narrative 04/20/2024 8:35 PM EDT PROCEDURE INFORMATION: Exam: CT Abdomen And Pelvis With Contrast Exam date and time: 04/20/2024 7:52 PM Age: 73 years old Clinical indication: Other: Cramping; Additional info: Cramping generalized abdominal pain TECHNIQUE: Imaging protocol: Computed tomography of the [...] INTRAVENOUS (IV); COMPARISON: CT ABD/PELVIS W IV CON 04/16/2021 7:04 AM FINDINGS: Lungs: Lung bases are clear of acute infiltrate. Heart: The heart is not enlarged. No coronary artery calcification. Liver: The liver shows diffuse steatosis. Gallbladder and biliary ducts: There has been a prior cholecystectomy. No abnormal biliary dilatation. Pancreas: The pancreas shows no focal lesion. It is mildly atrophic. Spleen: The spleen is not enlarged. No focal lesion. Adrenal glands: The adrenal glands are unremarkable. Kidneys and ureters: The kidneys are unobstructed. No calculi are identified. Stomach and bowel: There is a small hiatal hernia. There has been prior rectosigmoid surgery. There is no mass or obstruction at the anastomotic site. There are diverticula of the sigmoid colon but no diverticulitis. Appendix: The appendix is normal Intraperitoneal space: No free air or free fluid. Vasculature: There is mild calcification of the abdominal aorta without aneurysm. No significant stenosis of the celiac axis or superior mesenteric artery. Lymph nodes: No abnormal para-aortic adenopathy Urinary bladder: The bladder shows no filling defects. Reproductive: The uterine contour is unremarkable. Bones/joints: There are diffuse degenerative changes of the lumbar spine but no acute fracture or dislocation. Soft tissues: No abnormal abdominal wall soft tissue masses identified. There is a tiny subumbilical hernia containing fat only. Procedure Note Ilya Eugene MD - 04/20/2024 PROCEDURE INFORMATION: Exam: CT Abdomen And Pelvis With Contrast Exam date and time: 04/20/2024 7:52 PM Age: 73 years old Clinical indication: Other: Cramping; Additional info: Crampinggeneralized abdominal pain TECHNIQUE: Imaging protocol: Computed tomography of the [...] INTRAVENOUS (IV); COMPARISON: CT ABD/PELVIS W IV CON 04/16/2021 7:04 AM FINDINGS: Lungs: Lung bases are clear of acute infiltrate. Heart: The heart is not enlarged. No coronary artery calcification. Liver: The liver shows diffuse steatosis. Gallbladder and biliary ducts: There has been a prior cholecystectomy.No abnormal biliary dilatation. Pancreas: The pancreas shows no focal lesion. It is mildly atrophic. Spleen: The spleen is not enlarged. No focal lesion. Adrenal glands: The adrenal glands are unremarkable. Kidneys and ureters: The kidneys are unobstructed. No calculi areidentified. Stomach and bowel: There is a small hiatal hernia. There has been prior rectosigmoid surgery. There is no mass or obstruction at the anastomoticsite. There are diverticula of the sigmoid colon but no diverticulitis. Appendix: The appendix is normal Intraperitoneal space: No free air or free fluid. Vasculature: There is mild calcification of the abdominal aorta without aneurysm. No significant stenosis of the celiac axis or superiormesenteric artery. Lymph nodes: No abnormal para-aortic adenopathy Urinary bladder: The bladder shows no filling defects. Reproductive: The uterine contour is unremarkable. Bones/joints: There are diffuse degenerative changes of the lumbar spinebut no acute fracture or dislocation. Soft tissues: No abnormal abdominal wall soft tissue masses identified.There is a tiny subumbilical hernia containing fat only. IMPRESSION IMPRESSION: 1. Diffuse hepatic steatosis without focal lesion. 2. Prior rectosigmoid surgery without obstruction. There are diverticulaof the sigmoid colon but no diverticulitis. No free air or free fluid. 3. No renal calculi or renal obstruction. 4. Small hiatal hernia. THIS DOCUMENT HAS BEEN ELECTRONICALLY SIGNED BY ILYA EUGENE MD Kerry Wasserman MD RAD CT * TSH (04/20/2024 7:44 PM EDT) Pathologist [facility] TSH 0.81 0.27 - 4.20 uIU/mL 04/20/2024 8:22 PM EDT LABORATORY [facility] Blood Venous blood specimen / Unknown Venipuncture / Unknown 04/20/2024 7:44 PM EDT 04/20/2024 7:48 PM EDT Kerry Wasserman MD LAB BLOOD ORDERABLES LABORATORY [place] [id number] [place] [address] * (ABNORMAL) DIFFERENTIAL, AUTOMATED (04/20/2024 7:44 PM EDT) WBC 4.80 4.00 - 10.80 K/uL 04/20/2024 7:53 PM EDT LABORATORY [facility] Neutrophils % 47.7 40.0 - 75.0 % 04/20/2024 7:53 PM EDT LABORATORY [facility] Lymphocytes % 37.1 18.0 - 42.0 % 04/20/2024 7:53 PM EDT LABORATORY [facility] Monocytes % 11.3(H) 1.0 - 11.0 % 04/20/2024 7:53 PM EDT LABORATORY [facility] Eosinophils % 2.9 0.0 - 6.0 % 04/20/2024 7:53 PM EDT LABORATORY [facility] Basophils % 1.0 0.0 - 2.0 % 04/20/2024 7:53 PM EDT LABORATORY [facility] Absolute Neutrophils 2.29 1.80 - 7.70 K/uL 04/20/2024 7:53 PM EDT LABORATORY [facility] Absolute Lymphocytes 1.78 1.00 - 4.80 K/ul 04/20/2024 7:53 PM EDT LABORATORY [facility] Absolute Monocytes 0.54 0.00 - 1.10 K/uL 04/20/2024 7:53 PM EDT LABORATORY [facility] Absolute Eosinophils 0.14 0.00 - 0.70 K/uL 04/20/2024 7:53 PM EDT LABORATORY [facility] Absolute Basophils 0.05 0.00 - 0.20 K/uL 04/20/2024 7:53 PM EDT LABORATORY [facility] Blood Venous blood specimen / Unknown Venipuncture / Unknown 04/20/2024 7:44 PM EDT 04/20/2024 7:48 PM EDT Kerry Wasserman MD LAB BLOOD ORDERABLES Performing Organization Address City/State/[facility] Co de Phone Number LABORATORY [address] [address] * CBC (04/20/2024 7:44 PM EDT) [facility] WBC 4.80 4.00 - 10.80 K/uL 04/20/2024 7:53 PM EDT LABORATORY [facility] RBC 4.25 3.85 - 5.15 M/uL 04/20/2024 7:53 PM EDT LAB[facility]ATORY [facility] HGB 13.1 12.0 - 15.3 g/dL 04/20/2024 7:53 PM EDT LAB[facility] HCT 39.5 36.0 - 45.2 % 04/20/2024 7:53 PM EDT LAB[facility] MCV 92.9 81.5 - 97.5 fL 04/20/2024 7:53 PM EDT LAB[facility] MCH 30.8 27.0 - 34.0 pg 04/20/2024 7:53 PM EDT [facility] MCHC 33.2 32.0 - 36.0 g/dL 04/20/2024 7:53 PM EDT [facility] RDW 12.7 11.5 - 15.5 % 04/20/2024 7:53 PM EDT [facility] PLT 182 140 - 400 K/uL 04/20/2024 7:53 PM EDT [facility] MPV 9.7 6.6 - 11.1 fL 04/20/2024 7:53 PM EDT [facility] Blood Venous blood specimen / Unknown Venipuncture / Unknown 04/20/2024 7:44 PM EDT 04/20/2024 7:48 PM EDT Kerry Wasserman MD LAB BLOOD ORDERABLES [facility] [place] [id number] [place] [address] * (ABNORMAL) BLOOD GAS, VENOUS (04/20/2024 7:44 PM EDT) Temperature 37.0 C 04/20/2024 7:50 PM EDT LAB[facility] pH, Venous 7.378 7.320 - 7.430 units 04/20/2024 7:50 PM EDT [facility] pCO2, Venous 50.0 40.0 - 60.0 mmHg 04/20/2024 7:50 PM EDT [facility] pO2, Venous 20.2(L) 25.0 - 50.0 mmHg 04/20/2024 7:50 PM EDT [facility] Base Excess, Venous 3.2(H) -2.0 - 2.0 mmol/L 04/20/2024 7:50 PM EDT [facility] HGB 14.0 12.0 - 15.3 g/dL 04/20/2024 7:50 PM EDT [facility] Oxyhemoglobin, Venous 32.4(L) 40.0 - 85.0 % total Hgb 04/20/2024 7:50 PM EDT [facility] Carboxyhemoglobi n, Whole Blood 1.0 <=1.5 % total Hgb 04/20/2024 7:50 PM EDT [facility] Comment:Smokers: 0-9.0 % Methemoglobin, Whole Blood 0.9 <=1.5 % total Hgb 04/20/2024 7:50 PM EDT [facility] Reduced Hemoglobin, Venous 65.7 % total Hgb 04/20/2024 7:50 PM EDT [facility] O2 Content, Venous 6.4(L) 7.0 - 18.0 %vol 04/20/2024 7:50 PM EDT [facility] Bicarbonate, Whole Blood 29.4 23.0 - 31.0 mmol/L 04/20/2024 7:50 PM EDT [facility] Blood Venous blood specimen / Unknown Venipuncture / Unknown 04/20/2024 7:44 PM EDT 04/20/2024 7:48 PM EDT Kerry Wasserman MD LAB BLOOD ORDERABLES Performing Organization Address City/State/[facility] Co de Phone Number LABORATORY [address] [address] * (ABNORMAL) HEPATIC FUNCTION PANEL (04/20/2024 7:44 PM EDT) Pathologist [facility] [place] Albumin 3.8 3.8 - 5.0 g/dL 04/20/2024 8:13 PM EDT [facility] AST 26 10 - 35 U/L 04/20/2024 8:13 PM EDT [facility] Alkaline Phosphatase 58 35 - 130 U/L 04/20/2024 8:13 PM EDT [facility] ALT 36(H) 10 - 35 U/L 04/20/2024 8:13 PM EDT [facility] Bilirubin, Total 0.3 <=1.2 mg/dL 04/20/2024 8:13 PM EDT [facility] Bilirubin, Direct <0.2 0.0 - 0.3 mg/dL 04/20/2024 8:13 PM EDT [facility] Protein 6.1 6.0 - 8.3 g/dL 04/20/2024 8:13 PM EDT [facility] Blood Venous blood specimen / Unknown Venipuncture / Unknown 04/20/2024 7:44 PM EDT 04/20/2024 7:48 PM EDT Kerry Wasserman MD LAB BLOOD ORDERABLES Performing Organization Address City/[facility]/ZIP Co de Phone Number LABORATORY [address] [address] * LIPASE (04/20/2024 7:44 PM EDT) [facility] Lipase 38 13 - 60 U/L 04/20/2024 8:13 PM EDT LAB[facility] Blood Venous blood specimen / Unknown Venipuncture / Unknown 04/20/2024 7:44 PM EDT 04/20/2024 7:48 PM EDT Kerry Wasserman MD LAB BLOOD ORDERABLES Performing Organization Address [facility] de Phone Number LABORATORY [address] [address] * LACTATE, WHOLE BLOOD WITH REFLEX IF ABNORMAL (04/20/2024 7:44 PM EDT) [facility] Lactate, Whole Blood 1.5 0.4 - 2.0 mmol/L 04/20/2024 7:50 PM EDT LAB[facility] Blood Venous blood specimen / Unknown Venipuncture / Unknown 04/20/2024 7:44 PM EDT 04/20/2024 7:48 PM EDT Kerry Wasserman MD LAB BLOOD ORDERABLES Performing Organization Address [facility] Co de Phone Number LABORATORY [address] [address] * TROPONIN T, HIGH SENSITIVITY (04/20/2024 7:44 PM EDT) [facility] Troponin T, High Sensitivity 8 <=14 ng/L 04/20/2024 8:22 PM EDT LAB[facility] Blood Venous blood specimen / Unknown Venipuncture / Unknown 04/20/2024 7:44 PM EDT 04/20/2024 7:48 PM EDT Kerry Wasserman MD LAB BLOOD ORDERABLES LABORATORY [address] [address] * (ABNORMAL) BASIC METABOLIC PANEL (04/20/2024 7:44 PM EDT) [facility] BUN 12 6 - 20 mg/dL 04/20/2024 8:13 PM EDT [facility] Creatinine 0.8 0.5 - 1.0 mg/dL 04/20/2024 8:13 PM EDT [facility] Estimated Glomerular Filtration Rate 81 >=60 mL/min 04/20/2024 8:13 PM EDT [facility] Comment:eGFR is calculated b ased on the CKD-EPI 2020 equation. Sodium 136 135 - 146 mmol/L 04/20/2024 8:13 PM EDT [facility] Potassium 3.6 3.5 - 5.1 mmol/L 04/20/2024 8:13 PM EDT [facility] Chloride 101 98 - 107 mmol/L 04/20/2024 8:13 PM EDT [facility] CO2 25 22 - 32 mmol/L 04/20/2024 8:13 PM EDT [facility] Anion Gap 10 7 - 15 mmol/L 04/20/2024 8:13 PM EDT [facility] Glucose 204(H) 70 - 120 mg/dL 04/20/2024 8:13 PM EDT [facility] Calcium 8.9 8.4 - 10.2 mg/dL 04/20/2024 8:13 PM EDT [facility] Blood Venous blood specimen / Unknown Venipuncture / Unknown 04/20/2024 7:44 PM EDT 04/20/2024 7:48 PM EDT Kerry Wasserman MD LAB BLOOD ORDERABLES LAB[facility]ATORY [facility] [address] [place] [address] * RESPIRATORY PATHOGEN PANEL, PCR (04/20/2024 7:37 PM EDT) Adenovirus by PCR Negative Negative 024 8:39 PM EDT [facility] Coronavirus 229E by PCR Negative Negative 04/20/2024 8:39 PM EDT [facility] Coronavirus HKU1 by PCR Negative Negative 04/20/2024 8:39 PM EDT [facility] Coronavirus NL63 by PCR Negative Negative 04/20/2024 8:39 PM EDT [facility] Coronavirus OC43 by PCR Negative Negative 04/20/2024 8:39 PM EDT [facility] Coronavirus SARS-CoV-2 by PCR Negative Negative 04/20/2024 8:39 PM EDT [facility] Human Metapneumovirus by PCR Negative Negative 04/20/2024 8:39 PM EDT [facility] Rhinovirus/Enterovi donya by PCR Negative Negative 04/20/2024 8:39 PM EDT [facility] Influenza A Virus by PCR Negative Negative 04/20/2024 8:39 PM EDT [facility] Influenza B Virus by PCR Negative Negative 04/20/2024 8:39 PM EDT [facility] Parainfluenza Virus 1 by PCR Negative Negative 04/20/2024 8:39 PM EDT [facility] Parainfluenza Virus 2 by PCR Negative Negative 04/20/2024 8:39 PM EDT [facility] Parainfluenza Virus 3 by PCR Negative Negative 04/20/2024 8:39 PM EDT [facility] Parainfluenza Virus 4 by PCR Negative Negative 04/20/2024 8:39 PM EDT [facility] Respiratory Syncytial Virus by PCR Negative Negative 04/20/2024 8:39 PM EDT [facility] Bordetella pertussis by PCR Negative Negative 04/20/2024 8:39 PM EDT [facility] Chlamydia pneumoniae by PCR Negative Negative 04/20/2024 8:39 PM EDT [facility] Mycoplasma pneumoniae by PCR Negative Negative 04/20/2024 8:39 PM EDT [facility] Bordetella parapertussis by PCR Negative Negative 04/20/2024 8:39 PM EDT [facility] Comment: The primers that detect Rhinovirus may cross react with some Enterorviruses. The validation of bronchial specimens, tracheal aspirates, and throats for this assay was developed and performance characteristics determined by [employer]. The validation of alternate specimen types has not been cleared or approved by the U.S. Food and Drug Administration (FDA). It has been determined that such clearance or approval is not necessary. Upper Respiratory Mid-turbinate nasal swab / Unknown Non-blood Collection / Unknown 04/20/2024 7:37 PM EDT 04/20/2024 7:48 PM EDT Kerry Wasserman MD LAB MICRO - GENERAL ORDERABLES LAB[facility]ATORY [place] [id number] [place] [address] documented in this encounter Visit Diagnoses Diagnosis Tension-type headache, not intractable, unspecified chronicity pattern- Primary Screening for cardiovascular condition Screening for other and unspecified cardiovascular conditions Type 2 diabetes mellitus with hyperglycemia, unspecified whether jail insulin use (HCC) documented in this encounter Administered Medications Inactive Administered Medications - up to 3 most recent administrations Medication Order MAR Action Action Date Dose Rate Site Iopamidol (Isovue 370) inj 80 mL 80 mL, Intravenous, ONCE, On Tue04/20/24 at 2030, For 1 dose, Radiology Medication Routing (Non-IR) Given 04/20/2024 7:57 PM EDT 80 mL NSS 0.9% 1,000 mL bolus infusion Intravenous, at 1,000 mL/hr Administer over 60 Minutes, Administer entire volume within 60 minutes or less., ONCE, 1 dose, On Tue04/20/24 at 2015 Restarted 04/20/2024 8:09 PM EDT 1000 mL/hr New Bag 04/20/2024 7:50 PM EDT 1,000 mL 1000 mL/hr documented in this encounter Active and Recently Administered Medications Times are shown in EDT. Scheduled Medication Order 04/18/2024 04/19/2024 04/20/2024 Iopamidol (Isovue 370) inj 80 mL (COMPLETED) 80 mL, Intravenous, ONCE, On Tue04/20/24 at 2029, For 1 dose, Radiology Medication Routing (Non-IR) 1956 (Given - Provid er: Rosa Stapleton, RT) keTORolac (Toradol) 30 MG/ML inj 30 mg 30 mg, IV Push, ONCE, On Tue04/20/24 at 2014, For 1 dose 2005 (Not Given - Pr ovider: Sejal Cardoso RN - Reason: Refused-Notify Provider - Comment: Dr. Wasserman aware that pt refused medication at this time.) NSS 0.9% 1,000 mL bolus infusion (COMPLETED) Intravenous, at 1,000 mL/hr Administer over 60 Minutes, Administer entire volume within 60 minutes or less., ONCE, 1 dose, On Tue04/20/24 at 2014 1949 (New Bag - Prov ider: Sejal Cardoso RN)1950 (Paused - Provider: Sejal Cardoso RN)2008 (Restarted - Provider: Sejal Cardoso RN)2105 (Stopped - Provider: Sejal Cardoso RN)2107 (Stopped - Provider: Sejal Cardoso RN) documented in this encounter Additional Health Concerns Infection Onset Date Last Indicated Resolved Time Respiratory Rule-Out 04/20/2024 04/20/2024 024 8:39 PM EDT COVID-19 Rule-Out 04/20/2024 04/20/2024 04/20/2024 8:39 PM EDT documented as of this encounter Advance Directives * Full Code [...] Relationship Healthcare Agent Relationshi p Communication Travis Yudith Spouse First Alternate Health Care Agent Care 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
--- OUTSIDE RECORDS SUMMARY | 2024-10-17 21:33 | External Medical Summary ---
Author Name Unknown Address Unknown Organization K1G:LABORATORY [facility] - [address] [place] [phone] Laboratory Report Ordering Provider Test Date Status JUANJOSE OSBORNE 08/18/2024 04:00:54 Final Observation Date Value Abnormality Reference (Units ) Status Color of Urine by Auto 08/18/2024 04:00:54 Yellow Light Yellow, Yellow, Dark Yellow Final Clarity, Urine 08/18/2024 04:00:54 Clear Clear Final Glucose [Mass/volume] in Urine by Automated test strip 08/18/2024 04:00:54 Negative Negative (mg/dL) Final Bilirubin.total [Presence] in Urine by Automated test strip 08/18/2024 04:00:54 Negative Negative Final Ketones [Mass/volume] in Urine by Automated test strip 08/18/2024 04:00:54 Negative Negative (mg/dL) Final Specific gravity, Urine 08/18/2024 04:00:54 1.014 1.003-1.030 Final Hemoglobin [Presence] in Urine by Automated test strip 08/18/2024 04:00:54 Negative Negative Final pH, Urine 08/18/2024 04:00:54 7.0 5.0-7.5 (Units) Final Protein [Mass/volume] in Urine by Automated test strip 08/18/2024 04:00:54 Negative Negative (mg/dL) Final Urobilinogen [Mass/volume] in Urine by Automated test strip 08/18/2024 04:00:54 0.2 0.2, 1.0 (mg/dL) Final Nitrite [Presence] in Urine by Automated test strip 08/18/2024 04:00:54 Negative Negative Final Leukocyte esterase [Presence] in Urine by Automated test strip 08/18/2024 04:00:54 Negative Negative Final Annotation Comment 08/18/2024 04:00:54 Final Screen negative - Microscopi c not performed. Performing Location [facility]ATORY [facility] - [address] [facility] [phone]
--- OUTSIDE RECORDS SUMMARY | 2024-10-17 21:33 | External Medical Summary ---
Author Name Unknown Address Unknown Organization K1G:LABORATORY [facility] - [facility] [address] Laboratory Report Ordering Provider Test Date Status TOMMIE SILVERMAN 04/20/2024 19:37:55 Final ADMITTED patient Observation Date Value Abnormality Reference (Units ) Status Adenovirus DNA [Presence] in Nasopharynx by JASE with non-probe detection 04/20/2024 19:37:55 Negative Negative Final Human coronavirus 229E RNA [Presence] in Nasopharynx by JASE with non-probe detection 04/20/2024 19:37:55 Negative Negative Final Human coronavirus HKU1 RNA [Presence] in Nasopharynx by JASE with non-probe detection 04/20/2024 19:37:55 Negative Negative Final Human coronavirus NL63 RNA [Presence] in Nasopharynx by JASE with non-probe detection 04/20/2024 19:37:55 Negative Negative Final Human coronavirus OC43 RNA [Presence] in Nasopharynx by JASE with non-probe detection 04/20/2024 19:37:55 Negative Negative Final SARS-CoV-2 (COVID-19) RNA [Presence] in Nasopharynx by JASE with non-probe detection 04/20/2024 19:37:55 Negative Negative Final Human metapneumovirus RNA [Presence] in Nasopharynx by JASE with non-probe detection 04/20/2024 19:37:55 Negative Negative Final Rhinovirus+Enterovirus RNA [Presence] in Nasopharynx by JASE with non-probe detection 04/20/2024 19:37:55 Negative Negative Final Influenza virus A RNA [Presence] in Nasopharynx by JASE with non-probe detection 04/20/2024 19:37:55 Negative Negative Final Influenza virus B RNA [Presence] in Nasopharynx by JASE with non-probe detection 04/20/2024 19:37:55 Negative Negative Final Parainfluenza virus 1 RNA [Presence] in Nasopharynx by JASE with non-probe detection 04/20/2024 19:37:55 Negative Negative Final Parainfluenza virus 2 RNA [Presence] in Nasopharynx by JASE with non-probe detection 04/20/2024 19:37:55 Negative Negative Final Parainfluenza virus 3 RNA [Presence] in Nasopharynx by JASE with non-probe detection 04/20/2024 19:37:55 Negative Negative Final Parainfluenza virus 4 RNA [Presence] in Nasopharynx by JASE with non-probe detection 04/20/2024 19:37:55 Negative Negative Final Respiratory syncytial virus RNA [Presence] in Nasopharynx by JASE with non-probe detection 04/20/2024 19:37:55 Negative Negative Final Bordetella pertussis.pertussis toxin promoter region [Presence] in Nasopharynx by JASE with non-probe detection 04/20/2024 19:37:55 Negative Negative Final Chlamydophila pneumoniae DNA [Presence] in Nasopharynx by JASE with non-probe detection 04/20/2024 19:37:55 Negative Negative Final Mycoplasma pneumoniae DNA [Presence] in Nasopharynx by JASE with non-probe detection 04/20/2024 19:37:55 Negative Negative Final Bordetella parapertussis [id number] DNA [Presence] in Nasopharynx by JASE with non-probe detection 04/20/2024 19:37:55 Negative Negative Final
The primers that detect Rhinovirus may cross react with some Enterorviruses. The validation of bronchial specimens, tracheal aspirates, and throats for this assay was developed and performance characteristics determined by [employer]. The validation of alternate specimen types has not been cleared or approved by the U.S. Food and Drug Administration (FDA). It has been determined that such clearance or approval is not necessary. Performing Location [facility] - [address] [place] [phone]
--- OUTSIDE RECORDS SUMMARY | 2024-10-17 21:33 | External Medical Summary ---
Author Name Unknown Address Unknown Organization K1G:LABORATORY [facility] - [address] [facility] [address] Laboratory Report Ordering Provider Test Date Status TOMMIE SILVERMAN 04/20/2024 19:44:26 Final Observation Date Value Abnormality Reference (Units ) Status SYNC LEUKOCYTES IN BLOOD BY AUTOMATED COUNT 04/20/2024 19:44:26 4.80 4.00-10.80 (K/uL) Final Segs 04/20/2024 19:44:26 47.7 40.0-75.0 (%) Final Lymphs % 04/20/2024 19:44:26 37.1 18.0-42.0 (%) Final Monos 04/20/2024 19:44:26 11.3 Above high normal 1.0-11.0 (%) Final Eosinophils 04/20/2024 19:44:26 2.9 0.0-6.0 (%) Final Basos 04/20/2024 19:44:26 1.0 0.0-2.0 (%) Final Absolute Segs 04/20/2024 19:44:26 2.29 1.80-7.70 (K/uL) Final Lymphs, absolute 04/20/2024 19:44:26 1.78 1.00-4.80 (K/ul) Final Monos, Abs 04/20/2024 19:44:26 0.54 0.00-1.10 (K/uL) Final Eos, Abs 04/20/2024 19:44:26 0.14 0.00-0.70 (K/uL) Final Basos, Abs 04/20/2024 19:44:26 0.05 0.00-0.20 (K/uL) Final Performing Location LABORATORY [facility] - [address] [facility] [phone]
--- OUTSIDE RECORDS SUMMARY | 2024-10-17 21:33 | External Medical Summary ---
Author Name Unknown Address Unknown Organization K1G:LABORATORY [facility] - [address] [place] [phone] Laboratory Report Ordering Provider Test Date Status RAVI SILVERMANBASILIO 04/20/2024 19:44:26 Final Observation Date Value Abnormality Reference (Units ) Status Lactic Acid, Whole Blood 04/20/2024 19:44:26 1.5 0.4-2.0 (mmol/L) Final Performing Location LABORATORY [facility] - [address] [place] [phone]
--- OUTSIDE RECORDS SUMMARY | 2024-10-17 21:33 | External Medical Summary ---
Author Name Unknown Address Unknown Organization K1G:LABORATORY [facility] - [address] [place] [phone] Laboratory Report Ordering Provider Test Date Status MARITZASCARLET 04/25/2024 14:26:50 Final Exclude Heart Failure: <300 pg/mL
Diagnose Heart Failure:
Age <50 yr: >450 pg/mL
50-75 yr: >900 pg/mL
>75 yr: >1800 pg/mL
GFR is 30-59 mL/min: >1200 pg/mL or Age- adjusted values
GFR <30 mL/min: do not use, not reliable

Prognostic threshold: 1000 pg/mL Observation Date Value Abnormality Reference (Units ) Status BNP, Pro-hormone 04/25/2024 14:26:50 111 <30 0 (pg/mL) Final Performing Location LABORATORY [facility] - [address] [place] [phone]
--- OUTSIDE RECORDS SUMMARY | 2024-10-17 21:33 | External Medical Summary ---
Author Name Unknown Address Unknown Organization K1G:LABORATORY [facility] - [address] [place] [phone] Laboratory Report Ordering Provider Test Date Status TOMMIE SILVERMAN 04/20/2024 19:44:26 Final Observation Date Value Abnormality Reference (Units ) Status WBC, Total 04/20/2024 19:44:26 4.80 4.00-10.8 0 (K/uL) Final RBC 04/20/2024 19:44:26 4.25 3.85-5.15 (M/uL) Final Hemoglobin 04/20/2024 19:44:26 13.1 12.0-15.3 (g/dL) Final HCT 04/20/2024 19:44:26 39.5 36.0-45.2 (%) Final MCV 04/20/2024 19:44:26 92.9 81.5-97.5 (fL) Final MCH 04/20/2024 19:44:26 30.8 27.0-34.0 (pg) Final MCHC 04/20/2024 19:44:26 33.2 32.0-36.0 (g/dL) Final RDW 04/20/2024 19:44:26 12.7 11.5-15.5 (%) Final Platelets 04/20/2024 19:44:26 182 140-400 (K /uL) Final MPV 04/20/2024 19:44:26 9.7 6.6-11.1 ( fL) Final Performing Location LABORATORY [facility] - [address] [place] [phone]
--- OUTSIDE RECORDS SUMMARY | 2024-10-17 21:33 | External Medical Summary ---
Author Name Unknown Address Unknown Organization K1G:LABORATORY [facility] - [facility] [address] [facility] [phone] Laboratory Report Ordering Provider Test Date Status JUANJOSE OSBORNE 08/18/2024 02:26:52 Final Observation Date Value Abnormality Reference (Units ) Status WBC, Total 08/18/2024 02:26:52 8.07 4.00-10.8 0 (K/uL) Final RBC 08/18/2024 02:26:52 4.69 3.85-5.15 (M/uL) Final Hemoglobin 08/18/2024 02:26:52 14.6 12.0-15.3 (g/dL) Final HCT 08/18/2024 02:26:52 42.5 36.0-45.2 (%) Final MCV 08/18/2024 02:26:52 90.6 81.5-97.5 (fL) Final MCH 08/18/2024 02:26:52 31.1 27.0-34.0 (pg) Final MCHC 08/18/2024 02:26:52 34.4 32.0-36.0 (g/dL) Final RDW 08/18/2024 02:26:52 12.9 11.5-15.5 (%) Final Platelets 08/18/2024 02:26:52 231 140-400 (K /uL) Final MPV 08/18/2024 02:26:52 9.3 6.6-11.1 ( fL) Final Performing Location LABORATORY [facility] - [address] [facility] [phone]
--- OUTSIDE RECORDS SUMMARY | 2024-10-17 21:33 | External Medical Summary ---
Author Name Unknown Address Unknown Organization K1G:LABORATORY [facility] - [address] [facility] [phone] Laboratory Report Ordering Provider Test Date Status JUANJOSE OSBORNE 08/18/2024 02:26:52 Final Observation Date Value Abnormality Reference (Units ) Status BUN 08/18/2024 02:26:52 18 6-20 (mg/dL) Final Creatinine 08/18/2024 02:26:52 0.9 0.5-1.0 (mg/dL) Final Glomerular filtration rate/1.73 sq M.predicted [Volume Rate/Area] in Serum, Plasma or Blood by Creatinine-based formula (CKD-EPI) 08/18/2024 02:26:52 68 >=60 (mL/min) Final eGFR is calculated based on the CKD-EPI 2020 equation. Sodium 08/18/2024 02:26:52 140 135-146 (m mol/L) Final Potassium 08/18/2024 02:26:52 4.0 3.5-5.1 (m mol/L) Final Cl 08/18/2024 02:26:52 103 98-107 (mm ol/L) Final CO2 08/18/2024 02:26:52 27 22-32 (mmo l/L) Final Anion gap 08/18/2024 02:26:52 10 7-15 (mmol /L) Final Glucose 08/18/2024 02:26:52 121 Above high normal 70 -120 (mg/dL) Final Albumin 08/18/2024 02:26:52 3.8 3.5-4.4 (g /dL) Final AST (Aspartate aminotransferase) 08/18/2024 02:26:52 28 10-35 (U/L) Fin al Alk Phos 08/18/2024 02:26:52 56 35-130 (U/ L) Final Bilirubin, Total 08/18/2024 02:26:52 0.7 <=1 .2 (mg/dL) Final Calcium 08/18/2024 02:26:52 10.4 Above high normal 8. 4-10.2 (mg/dL) Final Protein 08/18/2024 02:26:52 7.5 6.0-8.3 (g /dL) Final ALT (Alanine aminotransferase) 08/18/2024 02:26:52 22 10-35 (U/L) Dakotah martino Performing Location LABORATORY [address] [phone]
--- OUTSIDE RECORDS SUMMARY | 2024-10-17 21:33 | External Medical Summary ---
Author Name Unknown Address Unknown Organization K1G:[facility] - [address] [place] [id number] Laboratory Report Ordering Provider Test Date Status TOMMIE SILVERMAN 04/20/2024 19:44:26 Final Observation Date Value Abnormality Reference (Units ) Status BUN 04/20/2024 19:44:26 12 6-20 (mg/dL) Final Creatinine 04/20/2024 19:44:26 0.8 0.5-1.0 (mg/dL) Final Glomerular filtration rate/1.73 sq M.predicted [Volume Rate/Area] in Serum, Plasma or Blood by Creatinine-based formula (CKD-EPI) 04/20/2024 19:44:26 81 >=60 (mL/min) Final eGFR is calculated based on the CKD-EPI 2020 equation. Sodium 04/20/2024 19:44:26 136 135-146 (m mol/L) Final Potassium 04/20/2024 19:44:26 3.6 3.5-5.1 (m mol/L) Final Cl 04/20/2024 19:44:26 101 98-107 (mm ol/L) Final CO2 04/20/2024 19:44:26 25 22-32 (mmo l/L) Final Anion gap 04/20/2024 19:44:26 10 7-15 (mmol /L) Final Glucose 04/20/2024 19:44:26 204 Above high normal 70 -120 (mg/dL) Final Calcium 04/20/2024 19:44:26 8.9 8.4-10.2 ( mg/dL) Final Performing Location [facility] - [address] [facility] [phone]
--- OUTSIDE RECORDS SUMMARY | 2024-10-17 21:33 | External Medical Summary ---
Author Name Unknown Address Unknown Organization K1G:[facility] - [address] [facility] [phone] Laboratory Report Ordering Provider Test Date Status TOMMIE SILVERMAN 04/20/2024 19:44:26 Final Observation Date Value Abnormality Reference (Units ) Status Albumin 04/20/2024 19:44:26 3.8 3.8-5.0 (g/dL) Final AST (Aspartate aminotransferase) 04/20/2024 19:44:26 26 10-35 (U/L) Final Alk Phos 04/20/2024 19:44:26 58 35-130 (U/L) Final ALT (Alanine aminotransferase) 04/20/2024 19:44:26 36 Above high normal 10-35 (U/L) Final Bilirubin, Total 04/20/2024 19:44:26 0.3 <=1.2 (mg/dL) Final Bilirubin, Direct 04/20/2024 19:44:26 <0.2 0.0-0.3 (mg/dL) Final Protein 04/20/2024 19:44:26 6.1 6.0-8.3 (g/dL) Final Performing Location [facility] - [address] [facility] [phone]
--- OUTSIDE RECORDS SUMMARY | 2024-10-17 21:33 | External Medical Summary ---
Author Name Unknown Address Unknown Organization K1G:[facility] - [address] [place] [phone] Laboratory Report Ordering Provider Test Date Status FOZIA SILVERMANMary 04/20/2024 19:44:26 Final Observation Date Value Abnormality Reference (Units ) Status Troponin T 04/20/2024 19:44:26 8 <=14 (ng/ L) Final Performing Location [facility] - [address] [place] [phone]
--- OUTSIDE RECORDS SUMMARY | 2024-10-17 21:33 | External Medical Summary ---
Author Name Unknown Address Unknown Organization K1G:[facility] - [address] [place] [phone] Laboratory Report Ordering Provider Test Date Status TOMMIE SILVERMAN 04/20/2024 19:44:26 Final Observation Date Value Abnormality Reference (Units ) Status Lipase 04/20/2024 19:44:26 38 13-60 (U/L ) Final Performing Location [facility] - [address] [place] [phone]
--- OUTSIDE RECORDS SUMMARY | 2024-10-17 21:33 | External Medical Summary | Summary of Care ---
Author Name Unknown Organization [facility] Address [address] [place] [address] Phone [phone] Care Team Providers Care Ditch Worker Name Role Phone Agustina Dalton MD Primary Care Provid er Encounter Details Date Type Department Care Team (Late st Contact Info) Description 04/25/2024 Orders Only Laboratory, [facility] [address] [place] [address] Agustina Dalton MD [address] [facility] [address] [place] [address] Shortness of breath* Allergies Active Allergy Reactions Criticality Noted Date [...] Diagnosed Date Influenza A with pneumonia 10/02/2023 nursing home current use of anticoagulant therapy 0 10/02/2023 [...] completely 'heal', then obtain a 30 day campus monitor with follow up after. At that [...] 10/24/2017 04/07/2020 Overview: DO NOT DELETE [facility] DETECT Study: Project # [id number], Airline Reservationist: Nir Arroyo, PhD. SUMMARY: Goal: Establish test [...] contact study staff at ; after hours Airline Reservationist via the [facility] hospital tool shaper setup operator . Please contact study team before resolving/deleting from patients problem list. Study phone number: [phone]. Diagnosis changed due to Research Module. Go to Snapshot for study details. Encounter for examination fo r normal comparison and control in clinical research program 10/24/2017 05/06/2022 Overview: [facility] DELETE [facility] DET[facility] Study: Project # [id number], Airline Reservationist: Mariusz Vallejo, MS, MPH. SUMMARY: Goal: Establish [...] contact study staff at ; after hours Airline Reservationist via the [facility] hospital tool shaper setup operator . - Please contact study team before resolving/deleting from patients problem list. Study phone number: [phone]. Diagnosis changed due to Research Module. Go [...] as of this encounter Plan of Treatment Scheduled Orders Name Type Priority Associated Diagnoses Orde r Schedule BNP, NT-PRO Lab Routine Shortness of breath Expected: 04/25/2024, Expires: 04/25/2025 Health Maintenance Due Date Last Done Comments [...] FOR ASTHMA-ADULT 07/29/2022 COVID-19 Vaccine ( - season) 2023 DXA Scan 08/04/2023 08/04/2021, [...] D LEVEL ONCE IN A LIFETIME-USE SMARTSET# [id number] Completed 08/23/2022, 06/01/2022, 06/01/2022, Additional history exists [...] this encounter Visit Diagnoses Diagnosis Shortness of breath- Primary documented in this encounter Advance Directives * [...] First Alternate Health Care Agent Care Teams Ditch Worker Relationship Specialty Start Date End Date Sha, Agustina Hui, MD [address] [place] [address] PCP - General Family Medicine 10/02/23 documented as of this encounter
--- OUTSIDE RECORDS SUMMARY | 2024-10-17 21:33 | External Medical Summary | Summary of Care ---
Author Name Unknown Organization [facility] Address [address] [place] [address] Phone [phone] Care Team Providers Care Collection Manager Name Role Phone Agustina Dalton MD Primary Care Provid er Reason for Visit * Reason Onset Date Comments Films 04/23/2024 Encounter Details Date Type Department Care Team (Late st Contact Info) Description 04/23/2024 Telephone Radiology Film File [address] [place] [address] Support, Imaging Radiology [address] [place] [address] Films Allergies Active Allergy Reactions Criticality Noted Date [...] as of this encounter (statuses as of 04/23/2024) Medications Medication Sig Dispensed Refills Start Date [...] as of this encounter (statuses as of 04/23/2024) Active Problems Problem Noted Date Diagnosed Date 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 At that [...] as of this encounter (statuses as of 04/23/2024) Resolved Problems Problem Noted Date Diagnosed Date [...] 10/24/2017 04/07/2020 Overview: DO NOT DELETE [facility] DETECT Study: Project # [id number], Guidance Counselor: Nir Arroyo, PhD. SUMMARY: Goal: Establish test [...] contact study staff at ; after hours Guidance Counselor via the [facility] hospital lowerator operator . Please contact study team before resolving/deleting from patients problem list. Study phone number: [phone]. Diagnosis changed due to Research Module. Go to Snapshot for study details. Encounter for examination fo r normal comparison and control in clinical research program 10/24/2017 05/06/2022 Overview: DO NOT DELETE - [facility] DETECT Study: Project # [id number], Guidance Counselor: Mariusz Vallejo, MS, MPH. SUMMARY: Goal: Establish [...] contact study staff at ; after hours Guidance Counselor via the [facility] hospital lowerator operator . - Please contact study team before resolving/deleting from patients problem list. Study phone number: [phone]. Diagnosis changed due to Research Module. Go to Snapshot for study details. documented as of this encounter (statuses as of 04/23/2024) Social History Tobacco Use Types Packs/Day Years [...] No 10/02/2023 documented as of this encounter Miscellaneous Notes * Telephone Encounter - Nir Gray Epic Support - 04/23/2024 11:50 AM EDT [facility] requesting 04-05-2024 to 04-20-2024 images be pushed to their system. Asher Authorization not on file however documentation in the chart can be used to ascertain established care with this provider/office. Images pushed to [facility] All ([employer]) Associated report(s) not needed. documented in this encounter Plan of Treatment Health Maintenance [...] D LEVEL ONCE IN A LIFETIME-USE SMARTSET# 11413 Completed 08/23/2022, 06/01/2022, 06/01/2022, Additional history exists [...] Not on filedocumented as of this encounter Advance Directives * [...] First Alternate Health Care Agent Care Teams Collection Manager Relationship Specialty Start Date End Date Agustina Dalton MD [address] [place] [address] PCP - General Family Medicine 10/02/23 documented as of this encounter
[2024-10-18] MEDS: LEVOTHYROXINE SODIUM 100 MCG TABLET PO SCH (06:05)
[2024-10-18] MEDS: POLYETHYLENE (MIRALAX) 17 GM PACK PO SCH (06:07)
[2024-10-18 06:35] LABS: Basophils # (auto) 0.02 K/uL (0.00-0.20); Basophils % (auto) 0.2 %; Eosinophils # (auto) 0.01 K/uL (0.00-0.50); Eosinophils % (auto) 0.1 %; Hematocrit (blood only) 36.3 % (37.0-47.0); Hemoglobin 12.8 g/dl (12.0-16.0); Immature Granulocytes # (auto) 0.05 K/uL (0.01-0.20); Immature Granulocytes % (auto) 0.4 %; Lymphocytes # (auto) 1.13 K/uL (1.20-3.40); Lymphocytes % (auto) 9.4 %; Mean Corpuscular Hemoglobin 30.5 pg (25.0-34.0); Mean Corpuscular Hgb Conc 35.3 g/dL (32.0-36.0); Mean Corpuscular Volume 86.6 fL (80.0-100.0); Monocytes # (auto) 0.71 K/uL (0.11-0.59); Monocytes % (auto) 5.9 %; Platelet Count 245 K/uL (130-400); RDW Coefficient of Variation 12.5 % (11.5-14.5); RDW Standard Deviation 39.7 fL (36.4-46.3); Red Blood Count 4.19 M/uL (4.20-5.40); White Blood Count 12.02 K/ul (4.8-10.8)
[2024-10-18 06:58] LABS: Calcium 9.5 mg/dl (8.6-10.3)
[2024-10-18] MEDS: hydroCHLOROthiazide 25 MG TAB PO SCH (08:34)
[2024-10-18] MEDS: ASCORBIC ACID 500 MG TAB PO SCH (08:34)
[2024-10-18] MEDS: PANTOprazole 40 MG TAB PO SCH (08:35)
[2024-10-18] MEDS: SACCHAROMYCES BOULARDII 250 MG CAP PO SCH (08:35)
[2024-10-18] MEDS: VITAMIN B COMPLEX TAB PO SCH (08:36)
[2024-10-18] MEDS: dexAMETHasone 6 MG in SYRINGE 0 ML IV SCH (08:37)
[2024-10-18] MEDS: UMECLIDINIUM BROMIDE 62.5MCG/BLISTER 7 PUFFS/INHALER INH SCH (08:42)
[2024-10-18] MEDS: LANTUS PER UNIT CHARGE SC SCH (08:50)
[2024-10-18] MEDS ORDERED: [UNRECOGNIZED DRUG - OTHER] PO SCH (09:00)
[2024-10-18] MEDS ORDERED: VITAMIN D3 VITAMIN K2 PO SCH (09:00)
[2024-10-18] MEDS ORDERED: NON-FORMULARY MEDICATION (Coenzyme Q10 100 mg Tablet) PO SCH (09:00)
[2024-10-18 09:30] LABS: Estimated Average Glucose 131 mg/dl; Hemoglobin A1C 6.2 % (4.5-5.6)
[2024-10-18] MEDS: COLESTIPOL HCL 1 GM TAB PO SCH (10:14)
--- NOTE | 2024-10-18 12:09 | Orthopedic Progress Note ---
Date of Service October 18, 2024 Assessment & Plan (1) Lumbar disc herniation with radiculopathy: Plan: At this time we will continue physical therapy monitor ASHLEY operatively discharge home in the next few days. Admission and Anticipated Discharge Date Admission Date: October 17, 2024 Subjective Back pain is controlled leg pain markedly improved Physical Exam Physical Exam: Patient is currently in bed. She has good strength testing. Peers comfortable. Results & Data Vital Signs (Past 12 Hours) Vital Signs Temp Pulse Resp BP Pulse Ox O2 Del Method 10/18/24 11:20 36.5 C 64 16 103/56 L 94 Room Air 10/18/24 07:46 36.4 C L 57 L 16 107/67 100 Room Air 10/18/24 04:00 36.5 C 57 L 16 125/66 97 Room Air Queries Orthopedic Spine Obesity: Yes
[2024-10-18 15:48] VITALS: O2SAT 95
--- NOTE | 2024-10-18 16:15 | Hospitalist Progress Note ---
Date of Service October 18, 2024 Assessment & Plan (1) Lumbar disc herniation with radiculopathy: (2) Diabetes mellitus, type 2: (3) Hx pulmonary embolism: (4) Atrial fibrillation: (5) Diverticular disease: (6) Hx of Clostridium difficile infection: (7) Cerebral microvascular disease: Plan Lumbar disc herniation with radiculopathy: -POD# 1 s/p L4-L5 decompression effusion care of Dr. Jean Baptiste. -Per ortho for pain control, wound care, anticoagulation and activities. -Monitor H&H, no baseline to compare. trend H/H in the AM; no overt bleeding identified around ASHLEY -ASHLEY drain with juan david red blood -Continue incentive spirometry, PT/OT when appropriate -minimize anticholinergic medications History of DVT/PE: -Takes Eliquis; recommended to hold no more than POD#2 (48 hours) given her history. Atrial fibrillation: -Takes Metoprolol; continue -Takes Eliquis; recommended to hold no more than POD#2 (48 hours) given her history. will restart tomorrow H/O Diverticular Disease: -History of three perforations s/p resections -H/O CD H/O TIA: -2018 and 2019 without residual effect Insulin dependent diabetes type 2: -Chronic -Uses Lantus 10 units QHS Disposition: PCP: Dr. Dalton Code Status: Full Code VTE Prophylaxis: Teds and SCDs for now I spent a total of 35 minutes in direct patient care, including [id number] time with the patient and/or family, reviewing medical records, ordering and reviewing diagnostic tests, and coordinating care with other healthcare providers. This time includes: history taking, physical examination, medical decision making, counseling, ECG interpretation, imaging interpretation, lab interpretation, orders, and education, excluding time spent in the performance of separately billed services. Admission and Anticipated Discharge Date Admission Date: October 17, 2024 Subjective Patient seen and examined at bedside. Patient is doing well today. States her pain is well-controlled. Postoperative period is went well. Review of Systems Review of Systems: Neuro: (-) Falls, trauma, slurred speech HEENT: (-) [place], dizziness, dysphagia, visual or auditory changes CV: (-) CP, palpitations, swelling Resp: (-) SOB GI: (-) appetite changes, N/V/D, bowel changes : (-) urinary changes Skin: (-) rashes Psych: (-) anxiety, depression Physical Exam Physical Exam: Gen: A&O 3 NAD HEENT: NCAT, EOMI, not icteric. External ears normal. No rhinorrhea. Moist mucous membranes. Neck: Supple, full range of motion, no observable masses, No meningeal sign. Lungs: No Respiratory distress. CV: RRR, no edema. Abdomen: Soft, nondistended, No rebound tenderness. MSK: No joint swelling, no redness. Noted surgical site Skin: No rashes, petechiae, lesions. Normal color per patient. Neuro: Normal Gait, Grossly intact. Psych: Appropriate for situation. Results & Data Results & Data Vital Signs (Past 12 Hours) Vital Signs Temp Pulse Resp BP Pulse Ox O2 Del Method 10/18/24 15:46 36.7 C 76 18 121/74 95 Room Air 10/18/24 11:20 36.5 C 64 16 103/56 L 94 Room Air 10/18/24 07:46 36.4 C L 57 L 16 107/67 100 Room Air Laboratory Results -personally reviewed, hemodynamically stable, creatinine at baseline, leukocytosis likely reactive to procedure Medications Administered Acetaminophen (Acetaminophen 500 Mg Tab) 1,000 mg PO Q8H PRN PRN Reason: MILD Pain Scale 1,2,3 & Pre PT Stop: 11/16/24 13:37 Last Admin: 10/18/24 12:30 Dose: 1,000 mg Documented By: Admin: 10/18/24 04:11 Dose: 1,000 mg Documented By: Admin: 10/17/24 17:18 Dose: 1,000 mg Documented By: YULIANA Hydrocodone Bitart/Acetaminophen (Hydrocodone/Acetamophen 5/325mg Tab) 1 - 2 tab PO Q4H PRN PRN Reason: Pain & Pre PT Stop: 10/31/24 13:37 Last Admin: 10/18/24 07:16 Dose: 1 tab Documented By: Admin: 10/17/24 20:00 Dose: 1 tab Documented By: Admin: 10/17/24 15:08 Dose: 1 tab Documented By: YULIANA Ascorbic Acid (Ascorbic Acid 500 Mg Tab) 1,000 mg PO DAILY RAMIN Stop: 11/17/24 08:59 Last Admin: 10/18/24 08:34 Dose: 1,000 mg Documented By: CARLOS Colestipol HCl (Colestipol Hcl 1 Gm Tab) 1 gm PO DAILY@1000 [facility] Stop: 11/17/24 09:59 Last Admin: 10/18/24 10:14 Dose: Not Given Documented By: CARLOS Diphenhydramine HCl (Diphenhydramine Capsule 25 Mg Cap) 12.5 mg PO HS [facility] Stop: 11/16/24 20:59 Last Admin: 10/17/24 21:11 Dose: Not Given Documented By: DACIA Hydrochlorothiazide (Hydrochlorothiazide 25 Mg Tab) 12.5 mg PO QAM [facility] Stop: 11/17/24 08:59 Last Admin: 10/18/24 08:34 Dose: 12.5 mg Documented By: CARLOS Dexamethasone 6 mg/ Syringe 1.5 mls @ 1 mls/min IV DAILY RAMIN Stop: 10/20/24 09:02 Last Admin: 10/18/24 08:37 Dose: 1 mls/min Documented By: CARLOS Insulin Aspart (Insulin Aspart Per Unit Charge) 0 units SC ACHS [facility] Stop: 11/16/24 13:59 Last Admin: 10/18/24 12:22 Dose: 5 units Documented By: CARLOS Co-signed By: TRENTON Admin: 10/18/24 08:48 Dose: 5 units Documented By: CARLOS Co-signed By: SHRUTHI Admin: 10/17/24 21:10 Dose: 1 units Documented By: DACIA Co-signed By: CHRIS Admin: 10/17/24 18:08 Dose: 7 units Documented By: YULIANA Co-signed By: ISABELL Admin: 10/17/24 14:51 Dose: 3 units Documented By: YULIANA Co-signed By: ISABELL Insulin Glargine (Lantus Per Unit Charge) 10 units SC DAILY [facility] Stop: 11/17/24 08:59 Last Admin: 10/18/24 08:50 Dose: 10 units Documented By: CARLOS Co-signed By: SHRUTHI Levothyroxine Sodium (Levothyroxine Sodium 100 Mcg Tablet) 100 mcg PO DAILYBB [facility] Stop: 11/17/24 06:29 Last Admin: 10/18/24 06:05 Dose: 100 mcg Documented By: DACIA Melatonin (Melatonin 3 Mg Tab) 6 mg PO HS [facility] Stop: 11/16/24 20:59 Last Admin: 10/17/24 21:09 Dose: 6 mg Documented By: DACIA Metoprolol Tartrate (Metoprolol Tartrate 50 Mg Tab) 50 mg PO BID [facility] Stop: 11/16/24 20:59 Last Admin: 10/18/24 08:35 Dose: Not Given Documented By: Admin: 10/17/24 21:09 Dose: 50 mg Documented By: DACIA Montelukast Sodium (Montelukast Sodium 10 Mg Tablet) 10 mg PO [facility] Stop: 11/16/24 20:59 Last Admin: 10/17/24 21:10 Dose: 10 mg Documented By: DACIA Ondansetron HCl (Ondansetron Inj 2 Mg/Ml 2 Ml Vial) 4 mg IV Q6H PRN PRN Reason: Nausea &/or Vomiting Stop: 11/16/24 13:37 Last Admin: 10/18/24 07:17 Dose: 4 mg Documented By: Admin: 10/17/24 19:46 Dose: 4 mg Documented By: Admin: 10/17/24 14:57 Dose: 4 mg Documented By: YULIANA Pantoprazole Sodium (Pantoprazole 40 Mg Tab) 40 mg PO Q2D [facility] Stop: 11/17/24 08:59 Last Admin: 10/18/24 08:35 Dose: 40 mg Documented By: CARLOS Polyethylene Glycol (Polyethylene (Miralax) 17 Gm Pack) 17 gm PO Q6 [facility] Stop: 11/17/24 05:59 Last Admin: 10/18/24 12:22 Dose: Not Given Documented By: Admin: 10/18/24 06:07 Dose: 17 gm Documented By: DACIA Saccharomyces Boulardii (Saccharomyces Boulardii 250 Mg Cap) 250 mg PO QAM [facility] Stop: 11/17/24 08:59 Last Admin: 10/18/24 08:35 Dose: 250 mg Documented By: CARLOS Senna/Docusate Sodium (Docusate Sodium/Senna 50/8.6mg Tab) 2 tab PO [facility] Stop: 11/16/24 20:59 Last Admin: 10/17/24 21:09 Dose: 2 tab Documented By: DACIA Umeclidinium [place] (Umeclidinium [place] 62.5mcg/Blister 7 Puffs/Inhaler) 1 puffs INH QAM [facility] Stop: 11/17/24 08:59 Last Admin: 10/18/24 08:42 Dose: Not Given Documented By: CARLOS Vitamin B Complex (Vitamin B Complex Tab) [facility] Stop: 11/17/24 08:59 Last Admin: 10/18/24 08:36 Dose: 1 tab Documented By: CARLOS
[2024-10-18 19:05] VITALS: RESP 16
[2024-10-18] MEDS: bisacodyL 10 MG SUPP PR STA (20:12)
[2024-10-19 07:00] LABS: Hematocrit (blood only) 36.1 % (37.0-47.0); Hemoglobin 12.5 g/dl (12.0-16.0); Mean Corpuscular Hemoglobin 30.1 pg (25.0-34.0); Mean Corpuscular Hgb Conc 34.6 g/dL (32.0-36.0); Mean Platelet Volume 10.1 fL (9.4-12.4); Platelet Count 246 K/uL (130-400); RDW Coefficient of Variation 12.9 % (11.5-14.5); RDW Standard Deviation 40.3 fL (36.4-46.3); Red Blood Count 4.15 M/uL (4.20-5.40); White Blood Count 10.24 K/ul (4.8-10.8)
[2024-10-19 07:23] LABS: BUN Creatinine Ratio 22.6 (10-20); Calcium 9.5 mg/dl (8.6-10.3); Creatinine Clr Calc Pharmacy 53.6 ml/min; Potassium 3.6 mmol/L (3.5-5.1)
[2024-10-19] MEDS: ONDANSETRON 4 MG OD TAB PO PRN (10:27)
[2024-10-19 11:53] VITALS: TEMP 98.1
--- NOTE | 2024-10-19 12:42 | Discharge Summary ---
Date of Service October 19, 2024 Admission HPI Per Admitting Provider This is a 73-year-old female presents for chronic persistent back and leg pain after failing course of nonoperative care is here for surgical invention. Principal Diagnosis Lumbar discrimination with radiculopathy Discharge Data Allergies Allergy/AdvReac Type Severity Reaction Status Date / Time latex Allergy Intermediate Renner Verified 10/17/24 08:56 codeine AdvReac Intermediate Vomiting Verified 10/17/24 08:56 pseudoephedrine AdvReac Intermediate Tachycardia Verified 10/17/24 08:56 [From Sudafed] tramadol AdvReac Intermediate Vomiting, Verified 10/17/24 08:56 Dizziness Nebulizer Treatments AdvReac Intermediate Tachycardia Uncoded 10/17/24 08:56 Consultations 10/17/24 13:38 Consult Hospitalist Routine Procedures Performed Operation Date: 10/17/24 10:05 Actual Procedures p L4-L5 Decompression and Fusion, Spinal Cord Monitoring(Not Applicable) - Brad Jean Baptiste DO Ordered Studies 10/17/24 [place] lumbar spine 2-3V Routine Hospital Course (1) Lumbar disc herniation with radiculopathy: Patient underwent lumbar decompression fusion trial as well as taken orthopedic for postoperative bed postop patient progressed appropriately. Marked improvement in her pain. Ambulating well. ASHLEY drain decreasing. Extra strength testing. Subsidy discharged home. Discharge orders instructions from the chart for further review. Total Time Total Time Spent Total Time Spent (In Minutes): 20 minutes Discharge Plan Discharge Items Patient Disposition: Home - Self-Care Reason For Visit: Lumbosacral Spondylosis with Radiculopathy, Lumbar Discharge Diagnosis: Lumbar spondylosis with radiculopathy Activity: As commented below Non-emergency contact: Primary Care Provider Call non-emergency contact if: you have any medication questions Follow-up/Referrals: Agustina Dalton M.D. [Primary Care Provider] - 10/25/24 1:00 pm Diet: Regular Addtl Attending Provider Instructions: ACTIVITY RECOMMENDATIONS: SELF CARE INSTRUCTIONS AFTER THORACIC/LUMBAR FUSIONS 1. You may walk to your tolerance. It is good exercise for your legs and back. Expect some back and intermittent leg aches and pains. 2. You may perform "counter-top" level activities (make a sandwich, joseph with a project, etc.). 3. No bending or lifting of more than 10 pounds or back twisting of any nature (roll like a log when turning in bed). 4. You may ride in a car for 20-30 minutes at a time. No driving until after your first visit with your doctor. 5. Frequent changes of position and restricting sitting to 30 minutes at a time will help limit the amount of back spasms and stiffness you may experience. 6. You may discontinue the use of ambulatory aids (cane, crutches, etc.) once your strength and confidence allow. 7. You may skein drier the shower and let water strike your incision when you arrive home at least once daily. Do not take a tub bath, sit in a hot tub or go into a swimming pool until after your first recheck in the office. 8. You may resume previous diet. SPECIAL CARE INSTRUCTIONS: VERY IMPORTANT TO READ AND REVIEW A. Your surgical incision has been closed with a cosmetic suture under the skin that will dissolve in about 6 weeks. In 14 days, you can use a pair of clean scissors and cut the suture that is left outside of the skin at the ends of your incision. 1. The small skin tapes can be removed 7 days after surgery if they have not fallen off by that point. 2. You may keep the wound open to air as much as possible to promote healing after post-op day number 5 unless told otherwise by your doctor. 3. If you think the wound looks like it is becoming infected (redness or worsening drainage) and/or you are experiencing fever, chill or worsening back pain and muscle spasms, contact the office so that we may evaluate you as soon as possible. B. Complications are uncommon, but please contact us if you have any signs or symptoms of: 1. wound infection (fever higher than 102.5 degrees F, redness, separation of wound, drainage, or increasing pain from the incision) 2. blood clots in legs (pain, swelling, redness and warmth in legs) 3. urinary tract infection (fever higher than 102.5 degrees F, burning upon urination or increased frequency of urination) 4. nerve problems (inability to walk on your toes or heels, numbness, loss of bowel or bladder control) 5. any other symptoms that concern you C. Please call the office at if you have any concerns or questions about your operation or recovery. D. No smoking! Smoking drastically decreases the chance of a solid fusion. E. Do not take any anti-inflammatory medications (Indocin, Advil, Motrin, Aspirin, Naprosyn, etc.) as these may inhibit the chance of a solid fusion. Tylenol is okay to take for pain. MANAGING PAIN AFTER SPINAL SURGERY 1. Narcotic medication is intended for short-term use and will be provided for surgical pain. Surgical pain usually lasts for a period of 4-6 weeks. Narcotic medication includes Percocet, Vicodin, Darvocet, Tylenol #3 or Lortab. 2. Longer-term pain is more appropriately treated with non-narcotic medication such as Tylenol ES. 3. Muscle spasm is not appropriately treated with narcotics. Muscle relaxers such as Soma, Flexeril or Skelaxin can be used along with Tylenol ES. 4. Remember that we all live with some "aches and pains". This is not unusual or uncommon after an injury or as we get older. a. Back pain is expected and may include muscle spasms for 4 to 6 weeks after surgery. The pain should gradually improve. If the pain worsens for no apparent reason, please contact the office. b. Intermittent leg pain may also be experienced and should not be concerned about unless it worsens for no apparent reason. If so, please contact the office. 5. We will provide appropriate medication within the normal guidelines of their prescribed use. We will also be very cautious and aware of potential abuse and extended duration of patients' medication needs. a. Pain medications are for your comfort and to assist with sleep and rest so that the tissue can heal. They are not provided in order to return to normal activity and should not be used through the day. To do so or worsening pain at night can result from ongoing tissue damage and devel opment of tolerance to the prescribed medicine. 6. Please allow 2-3 days to process refills. Prescriptions will not be mailed but must be picked up at the office. FOLLOW UP VISIT: Keep your scheduled follow-up appointment. Any questions, please call the office at . Pending Studies at Discharge: No Stand-Alone Forms: [employer], Smoking Cessation Medications and DC Order Prescriptions: New hydrocodone-acetaminophen 5-325 mg tablet 1 tab PO Q6H PRN (Reason: pain) Qty: 30 0RF Continued ascorbic acid (vitamin C) [Vitamin C] 1,000 mg Tablet 1 g PO DAILY levothyroxine [Synthroid] 100 mcg Tablet 100 mcg PO DAILYBB omeprazole 10 mg Capsule,Delayed Release(Dr/Ec) 10 mg PO Q2D diphenhydramine HCl [Unisom SleepMinis] 25 mg Capsule 12.5 mg PO HS metoprolol tartrate 50 mg Tablet 50 mg PO BID hydrochlorothiazide 12.5 mg Capsule 12.5 mg PO QAM montelukast 10 mg Tablet 10 mg PO HS colestipol 1 gram Tablet 1 g PO DAILY vitamin B complex Capsule 1 cap PO QAM calcium citrate malate-vit D3 500-200 mg-unit Tablet 2 tab PO QAM insulin glargine [Lantus Solostar U-100 Insulin] 100 unit/mL (3 mL) Insulin Pen 10 unit SUBCUT HS melatonin 5 mg Tablet 5 mg PO HS coenzyme Q10 100 mg Tablet 100 mg PO QAM Eliquis 5 mg Tablet 5 mg PO BID Spiriva Respimat 1.25 mcg/actuation Mist 2 puff INHALATION QAM vitamin K2 45 mcg Capsule 45 mcg PO QAM vitamin D3-vitamin K2 250 mcg (10,000 unit)-45 mcg Capsule 1 cap PO QAM Full Spectrum Magnesium 1 cap PO HS Gastricsoothe 2 cap PO BID Probiotic 1 cap PO HS Saccharomyces boulardii 1 cap PO QAM Vital Gut Renewal 1 tbsp PO DAILY Rx Instructions: Mix with water albuterol 90 mcg/actuation Aerosol 90 mcg INHALATION DAILY PRN (Reason: Shortness of breath and Wheezing) Discharge Orders: Discharge Order (Routine); Ordered 10/19/24 Ordered By: Brad Christian/Other Patient Handouts: Managing Type 2 Diabetes Admission Data Admit Date/Time: 10/17/24 11:56 Attending Provider: Brad Jean Baptiste Admit Provider: Brad Jean Baptiste Primary Care Provider: Agustina Dalton Other Providers: Jazlyn Chambers
[2024-10-19 14:46] VITALS: BP 130/82; PULSE 75
--- NOTE | 2024-10-19 17:50 | Hospitalist Progress Note ---
Date of Service October 19, 2024 Assessment & Plan (1) Lumbar disc herniation with radiculopathy: (2) Diabetes mellitus, type 2: (3) Hx pulmonary embolism: (4) Atrial fibrillation: (5) Diverticular disease: (6) Hx of Clostridium difficile infection: (7) Cerebral microvascular disease: Plan Lumbar disc herniation with radiculopathy: -POD# 2 s/p L4-L5 decompression effusion care of Dr. Jean Baptiste. -Per ortho for pain control, wound care, anticoagulation and activities. -Monitor H&H, no baseline to compare. trend H/H in the AM; no overt bleeding identified around ASHLEY -ASHLEY drain with juan david red blood -Continue incentive spirometry, PT/OT when appropriate -minimize anticholinergic medications History of DVT/PE: -Takes Eliquis; recommended to hold no more than POD#2 (48 hours) given her history. Atrial fibrillation: -Takes Metoprolol; continue -Takes Eliquis; recommended to hold no more than POD#2 (48 hours) given her history. restarted on discharge H/O Diverticular Disease: -History of three perforations s/p resections -H/O CD H/O TIA: -2018 and 2019 without residual effect Insulin dependent diabetes type 2: -Chronic -Uses Lantus 10 units QHS I spent a total of 35 minutes in direct patient care, including [id number] time with the patient and/or family, reviewing medical records, ordering and reviewing diagnostic tests, and coordinating care with other healthcare providers. This time includes: history taking, physical examination, medical decision making, counseling, ECG interpretation, imaging interpretation, lab interpretation, orders, and education, excluding time spent in the performance of separately billed services. Admission and Anticipated Discharge Date Admission Date: October 17, 2024 Subjective Patient seen and examined at bedside. Patient doing well today, no concerns at this time. Review of Systems Review of Systems: Neuro: (-) Falls, trauma, slurred speech HEENT: (-) [place], dizziness, dysphagia, visual or auditory changes CV: (-) CP, palpitations, swelling Resp: (-) SOB GI: (-) appetite changes, N/V/D, bowel changes : (-) urinary changes Skin: (-) rashes Psych: (-) anxiety, depression Physical Exam Physical Exam: Gen: A&O 3 NAD HEENT: NCAT, EOMI, not icteric. External ears normal. No rhinorrhea. Moist mucous membranes. Neck: Supple, full range of motion, no observable masses, No meningeal sign. Lungs: No Respiratory distress. CV: RRR, no edema. Abdomen: Soft, nondistended, No rebound tenderness. MSK: No joint swelling, no redness. Noted surgical site Skin: No rashes, petechiae, lesions. Normal color per patient. Neuro: Normal Gait, Grossly intact. Psych: Appropriate for situation. Results & Data Results & Data Vital Signs (Past 12 Hours) Vital Signs Temp Pulse Pulse Resp BP BP Pulse Ox 10/19/24 14:44 36.7 C 76 75 16 112/78 130/82 95 10/19/24 11:51 36.7 C 76 16 112/78 95 10/19/24 07:52 36.5 C 62 16 130/82 95 O2 Del Method 10/19/24 14:44 10/19/24 11:51 Room Air 10/19/24 07:52 Room Air Laboratory Results -personally reviewed, Stable creatinine and hemoglobin postop
== END 2024-10-19 16:08 | disposition home or self-care (01) | DRG 402 ==
LOC: ASU 08:23 → 3E 11:56 → INTOOBSV 11:56